=== PATIENT | male | born 1950 | race Caucasian/White ===

== ENCOUNTER 2017-06-12 14:46 | Observation (INO) | payer BC, OTHER ==
[2017-06-12] VITALS (10 sets, daily range): BP systolic 138–166; BP diastolic 87–98; PULSE 54–70; TEMP 36.7–37.2; O2SAT 93–95; Ht 177.8 cm; Wt 120.3 kg
[~2017-06-12] VITALS: Ht 177.8 cm; Wt 120.3 kg
[~2017-06-12 14:46] MED LIST: ATEN-175 PO; ENOX40IN SQ; GLUCOSAMINE PO; HCTZ PO; LEVO125T7 PO; LISI10TA PO; OXYC-292 PO; RANI150T3 PO; SILD100T PO
[2017-06-12] MEDS ORDERED: HEPARIN SOD (PORCINE) 1000 UNIT/ML 10 ML VIAL ONE ×2 (14:52→16:05)
[2017-06-12] MEDS ORDERED: NiCARDipine HCL INJ 2.5 MG/ML 10 ML AMP ONE (14:52)
[2017-06-12] MEDS ORDERED: FENTANYL CITRATE INJ 50 MCG/1 ML 2 ML VIAL ONE (14:52)
[2017-06-12] MEDS ORDERED: MIDAZOLAM HCL 1 MG/ML 2ML VIAL ONE (14:52)
[2017-06-12 15:00] LABS: BASO % 0.2 %; BASO ABS # 0.01 K/uL (0-0.2); COMPLETE YES; EOS % 0.7 %; HEMATOCRIT 41.4 % (42-52); IG% 1.1 %; LYMPH % 21.6 %; LYMPH ABS # 0.99 K/uL (1.2-3.4); MEAN CELL VOLUME 92.6 fL (80-100); MEAN CORPUSCULAR HEMOGLOBIN 30.4 pg (25-34); MEAN CORPUSCULAR HGB CONC 32.9 g/dl (32-36); MEAN PLATELET VOLUME 9.4 fL (7.4-10.4); MONO % 7.9 %; NEUT % 68.5 %; PLATELET COUNT 165 K/uL (130-400); RED BLOOD COUNT 4.47 M/uL (4.7-6.1); WHITE BLOOD COUNT 4.58 K/uL (4.8-10.8)
[2017-06-12] MEDS ORDERED: HYDR25TA4 PO (15:12)
[2017-06-12] MEDS ORDERED: ATOR-22 PO (15:12)
[2017-06-12] MEDS ORDERED: LEVO125T72 PO (15:12)
[2017-06-12] MEDS ORDERED: ANS100 PO (15:12)
[2017-06-12] MEDS ORDERED: ASPI81TA28 PO (15:12)
[2017-06-12] MEDS ORDERED: FLUT50SP45 NAE (15:12)
--- NOTE | 2017-06-12 15:18 | DIAGNOSTIC IMAGING REPORT ---
CHEST ONE VIEW PORTABLE CLINICAL HISTORY: Chest pain. COMPARISON STUDY: Chest radiograph January 19, 2013. FINDINGS: Lung volumes are normal. No pneumothorax or pleural effusion is present. There is no consolidation or evidence of pulmonary edema. Cardiomediastinal silhouette is normal. IMPRESSION: No acute cardiopulmonary findings. Electronically signed by: Logan Pepper M.D. 06/12/2017 3:17 PM Dictated Date/Time: 06/12/2017 3:16 PM
[2017-06-12 15:19] LABS: ISTAT CREATININE 1.2 mg/dl (0.6-1.3); ISTAT HEMOGLOBIN 12.9 g/dl (14.0-18.0); ISTAT IONIZED CALCIUM 1.17 mmol/l (1.12-1.32)
[2017-06-12 15:19] LABS: ALT/SGPT 43 U/L (12-78); BLOOD UREA NITROGEN 29 mg/dl (7-18); BUN/CREATININE RATIO 21.9 (10-20); CALCIUM 8.7 mg/dl (8.5-10.1); CARBON DIOXIDE 26 mmol/L (21-32); CHLORIDE 105 mmol/L (98-107); CREATININE 1.34 mg/dl (0.60-1.40); GLUCOSE 85 mg/dl (70-99); POTASSIUM 4.1 mmol/L (3.5-5.1); SODIUM 137 mmol/L (136-145)
--- NOTE | 2017-06-12 15:28 | Procedure Note ---
Pre-Mod Sedation Assessment General Date of Moderate Sedation: Jun 12, 2017. Vital Signs: Vital Signs Past 12 Hours Date Time Temp Pulse Resp B/P (MAP) Pulse Ox O2 Delivery O2 Flow Rate FiO2 06/12/17 15:09 66 18 146/93 95 Room Air 06/12/17 14:59 68 06/12/17 14:54 96 Room Air 06/12/17 14:46 96 Room Air 06/12/17 14:46 37.0 68 16 147/90 96 Room Air Review Cardiovascular: regular rate, rhythm, no edema, no gallop, no JVD, no murmur Abdomen: soft, no organomegaly Lungs: lungs clear Airway Class: III Pre-Sedation Airway Assessment Oral Cavity: WNL Able to Visualize Vocal Cords: No Hx of Sleep Apnea: Yes Smoking Status: Never Smoker Mallampati Classification: Class III Procedure Planning Contraindications-for Mod Sed: None Yes Notes The planned sedation has been discussed with the patient and consent obtained. I have identified the patient, determined the appropriateness of sedation and have assessed the patient immediately prior to the procedure. All medicine(s) and interventions are by my order.
--- NOTE | 2017-06-12 15:34 | EMERGENCY ROOM VISIT NOTE ---
History Report prepared by Javier: Brian Antonio Under the Supervision of: Dr. Joaquim Munoz M.D. First contact with patient: 14:47 Chief Complaint: CHEST PAIN Stated Complaint: FAILED STRESS TEST History of Present Illness The patient is a 66 year old male who presents to the Emergency Room with complaints of intermittent chest pain for the past couple of days. The patient notes that he had a stress test done today due to an abnormal EKG noticed recently at his PCP. He additionally notes that a couple of days ago he was having chest pain with exertion while carrying a bed. Earlier today he was given 4 aspirin and a Nitro SL, and this relieved his pain. The patient has a family history of heart disease, and he states that his father of a heart attack at 64. Source of History: patient Onset: a couple days Position: chest Timing: intermittent Modifying Factors (Worsening): exertion Modifying Factors (Relieving): other (Nitro and aspirin) Review of Systems See HPI for pertinent positives & negatives. A total of 10 systems reviewed and were otherwise negative. Past Medical & Surgical Medical Problems: (1) DJD (degenerative joint disease) Surgical Problems: (1) Hx of cholecystectomy Family History Heart disease Social History Smoking Status: Never Smoker Marital Status: Housing Status: lives with family Occupation Status: retired Current/Historical Medications Scheduled Aspirin (Aspirin Ec), 81 MG PO DAILY Atenolol (Tenormin), 100 MG PO QPM Atorvastatin (Lipitor), 20 MG PO DAILY Flurbiprofen (Flurbiprofen), 100 MG PO BID Fluticasone Propionate (Nasal) (Allergy Nasal Prue 24 Ho), 2 SPRAYS KADY DAILY Hydrochlorothiazide (Hctz), 25 MG PO DAILY Levothyroxine Sodium (Synthroid), 125 MCG PO DAILY Lisinopril (Prinivil), 10 MG PO QPM Ranitidine Hcl (Zantac), 150 MG PO QPM Allergies Coded Allergies: Doxycycline (Verified Allergy, Unknown, RASH, 06/12/17) Penicillins (Verified Allergy, Unknown, RASH, 06/12/17) Tetracycline (Verified Allergy, Unknown, RASH, 06/12/17) Physical Exam Vital Signs Date Time Temp Pulse Resp B/P (MAP) Pulse Ox O2 Delivery O2 Flow Rate FiO2 06/12/17 15:09 66 18 146/93 95 Room Air 06/12/17 14:59 68 12/13/17 14:54 96 Room Air 06/12/17 14:46 96 Room Air 06/12/17 14:46 37.0 68 16 147/90 96 Room Air Physical Exam GENERAL: Patient is a healthy-appearing well-nourished male HEAD: Normocephalic atraumatic EYES: Ocular movements intact pupils equal and react to light OROPHARYNX mucous membranes are moist no exudates present no erythema or edema present NECK: Supple no nuchal rigidity CHEST: Good equal expansion LUNGS: Clear and equal to auscultation CARDIAC: Normal S1 and S2 ABDOMEN: Soft nontender no guarding BACK: No CVA tenderness EXTREMITIES: No pain upon palpation normal muscle strength in all groups no clubbing cyanosis or edema NEURO: Patient is following commands and answering questions appropriately. Alert and oriented x3 Cranial Nerves 2-12 grossly intact Medical Decision & Procedures ER Provider Diagnostic Interpretation: Radiology results as stated below per my review and radiologist interpretation: CHEST ONE VIEW PORTABLE CLINICAL HISTORY: Chest pain. COMPARISON STUDY: Chest radiograph January 19, 2013. FINDINGS: Lung volumes are normal. No pneumothorax or pleural effusion is present. There is no consolidation or evidence of pulmonary edema. Cardiomediastinal silhouette is normal. IMPRESSION: No acute cardiopulmonary findings. Electronically signed by: Logan Pepper M.D. 06/12/2017 3:17 PM Dictated Date/Time: 06/12/2017 3:16 PM Laboratory Results 06/12/17 14:50 Red Blood Count 4.47, Mean Corpuscular Volume 92.6, Mean Corpuscular Hemoglobin 30.4, Mean Corpuscular Hemoglobin Concent 32.9, Mean Platelet Volume 9.4, Neutrophils (%) (Auto) 68.5, Lymphocytes (%) (Auto) 21.6, Monocytes (%) (Auto) 7.9, Eosinophils (%) (Auto) 0.7, Basophils (%) (Auto) 0.2, Neutrophils # (Auto) 3.14, Lymphocytes # (Auto) 0.99, Monocytes # (Auto) 0.36, Eosinophils # (Auto) 0.03, Basophils # (Auto) 0.01 06/12/17 14:50 Test 06/12/17 14:49 06/12/17 14:50 06/12/17 15:00 06/12/17 15:07 Creatine Kinase MB Ratio (0-3.0) White Blood Count 4.58 K/uL (4.8-10.8) Red Blood Count 4.47 M/uL (4.7-6.1) Hemoglobin 13.6 g/dL (14.0-18.0) Hematocrit 41.4 % (42-52) Mean Corpuscular Volume 92.6 fL (80-100) Mean Corpuscular Hemoglobin 30.4 pg (25-34) Mean Corpuscular Hemoglobin Concent 32.9 g/dl (32-36) Platelet Count 165 K/uL (130-400) Mean Platelet Volume 9.4 fL (7.4-10.4) Neutrophils (%) (Auto) 68.5 % Lymphocytes (%) (Auto) 21.6 % Monocytes (%) (Auto) 7.9 % Eosinophils (%) (Auto) 0.7 % Basophils (%) (Auto) 0.2 % Neutrophils # (Auto) 3.14 K/uL (1.4-6.5) Lymphocytes # (Auto) 0.99 K/uL (1.2-3.4) Monocytes # (Auto) 0.36 K/uL (0.11-0.59) Eosinophils # (Auto) 0.03 K/uL (0-0.5) Basophils # (Auto) 0.01 K/uL (0-0.2) RDW Standard Deviation 50.4 fL (36.4-46.3) RDW Coefficient of Variation 15.0 % (11.5-14.5) Immature Granulocyte % (Auto) 1.1 % Immature Granulocyte # (Auto) 0.05 K/uL (0.00-0.02) Estimated GFR () 63.5 Estimated GFR (Non- 54.8 BUN/Creatinine Ratio 21.9 (10-20) Calcium Level 8.7 mg/dl (8.5-10.1) Direct Bilirubin 0.2 mg/dl (0-0.2) Alanine Aminotransferase (ALT/SGPT) 43 U/L (12-78) Albumin 3.8 gm/dl (3.4-5.0) Lipase 302 U/L (73-393) Bedside Troponin I 0.060 ng/ml (0-0.045) Bedside Hemoglobin 12.9 g/dl (14.0-18.0) Bedside Hematocrit 38 % (42-52) Bedside Sodium 140 mEq/L (135-144) Bedside Potassium 3.9 mEq/L (3.3-5.0) Bedside Chloride 104 mEq/L (101-112) Bedside Total CO2 23 mEq/l (24-31) Anion Gap 18.0 mmol/L (16-25) Bedside Blood Urea Nitrogen 30 mg/dl (7-18) Bedside Creatinine 1.2 mg/dl (0.6-1.3) Bedside Glucose (other) 91 mg/dl (70-99) Bedside Ionized Calcium (Leon) 1.17 mmol/l (1.12-1.32) Labs reviewed by ED physician. ECG Indication: chest pain Rate (beats per minute): 67 Rhythm: normal sinus Findings: no acute ischemic change, no ectopy, other (Old inferior infarct) ED Course 1447: Past medical records reviewed. The patient was evaluated in room A10. A complete history and physical examination was performed. 1501: I discussed the patient's case with Dr. Gunn, Cardiology, and he is gong to take the patient to the Pack Mule Worker Medical Decision Differential diagnosis: Etiologies such as cardiac ischemia, aortic dissection, pulmonary embolism, pneumonia, pneumothorax, musculoskeletal, infections, pericarditis, myocarditis , esophageal rupture, gastrointestinal, as well as others were entertained. This is a 66-year-old male who presents emergency department complaining of a failed stress test. The patient in the emergency department is pain-free. I did discuss the case with Dr. Gunn who agreed to take the patient to the Pack Mule Worker. Patient was in agreement with the treatment plan. Medication Reconcilliation Current Medication List: was personally reviewed by me Blood Pressure Screening Patient's blood pressure: Elevated blood pressure Monitored by the profiler Consults Time Called: 1458 Consulting Physician: Dr. Gunn, Cardiology Returned Call: 1501 I discussed the patient's case with Dr. Gunn, Cardiology, and he is gong to take the patient to the Pack Mule Worker Impression Primary Impression: Precordial chest pain Scribe Attestation The scribe's documentation has been prepared under my direction and personally reviewed by me in its entirety. I confirm that the note above accurately reflects all work, treatment, procedures, and medical decision making performed by me. Departure Information Dispostion Other (Pack Mule Worker) Referrals No Doctor, Assigned (PCP) Patient Instructions My [facility]
[2017-06-12 15:37] LABS: ALKALINE PHOSPHATASE 59 U/L (45-117); AST/SGOT 22 U/L (15-37)
--- NOTE | 2017-06-12 16:20 | [facility] Post Operative Brief Note ---
Preliminary Procedure Note Procedure Date Jun 12, 2017. Pre-Procedure Diagnosis Angina, Positive Stress Test AUC Score 9 Post-Procedure Diagnosis Severe CAD Procedure(s) Performed Coronary Angiography Auto Research Engineer Dr. Gerard Gunn Chiseler Head(s) Clinton Duran Estimated Blood Loss <15cc Medication(s) Fentanyl (12.5 mcg IV), Heparin (5000u IV), Versed (1mg IV), Lidocaine 1% ( local infiltration) Preliminary Findings Right dominant coronary anatomy LM Relatively short, normal caliber LAD Type II, mild proximal calcification. Long mid vessel 80+ % LCX Large , small M1, large trifurcating OM, LCX 20% origin moderate irreg RCA Dominant moderate irregularities LV pressure 121/3/16 Recommendations PCI without planned CABG Specimens None Fluids (cc crystalloids) 60 Anesthesia Start 1530 End (initial procedure 1558) Procedural Complication(s) None Disposition Monitor And Storage Bin Tender Holding/Recovery
--- NOTE | 2017-06-12 17:06 | Procedure Note ---
Post-Mod Sedation Assessment General Date of Moderate Sedation Jun 12, 2017. Vital Signs: Vital Signs Past 12 Hours Date Time Temp Pulse Resp B/P (MAP) Pulse Ox O2 Delivery O2 Flow Rate FiO2 06/12/17 17:00 Room Air 06/12/17 16:56 69 16 131/88 (102) 95 Room Air 06/12/17 15:09 66 18 146/93 95 Room Air 06/12/17 14:59 68 06/12/17 14:54 96 Room Air 06/12/17 14:46 96 Room Air 06/12/17 14:46 37.0 68 16 147/90 96 Room Air Review - Discharge Criteria Vital Signs Stable: Yes Alert/Oriented/Conversant: Yes Returned to Baseline Mental St: Yes Nausea Absent/Minimal: Yes Pain/Discomfort/Absent/Minimal: Yes Normal/Baseline Respirations: Yes Active Bleeding?: No Pt Received D/C Instructions: N/A Prescriptions Given: None Specific Proced. D/C Criteria Distal Pulses Present (Cardiac: Yes Groin site assessed-Card Cath: N/A Voided Prior To Discharge: N/A Discharged Patients Adult Escort/Transportation: Yes
[2017-06-12] MEDS ORDERED: CLOPIDOGREL BISULFATE 300 MG TAB PO ONE (17:07)
[2017-06-12] MEDS ORDERED: ACETAMINOPHEN 325 MG TAB PO PRN (17:15)
[2017-06-12] MEDS ORDERED: SODIUM CHLORIDE 0.9% 1000ML 1,000 ML IV SCH (17:15)
[2017-06-12] MEDS ORDERED: NITROGLYCERIN 0.4 MG SL PER TAB CHARGE SL PRN (17:15)
--- NOTE | 2017-06-12 17:15 | Cardiac Catheterization ---
Procedure Note Procedure Date Jun 12, 2017. Pre-Procedure Diagnosis Positive Stress Test AUC Score 8 Post-Procedure Diagnosis Severe CAD, Successful PCI Procedure(s) Performed Drug Eluting Stent, IVUS Statistical Methods Teacher Brad Automatic Outsole Cutter(s) Roger Estimated Blood Loss 20 Medication(s) Clopidogrel, Fentanyl, Heparin, Nicardipine, Nitroglycerin, Versed Summary of Findings Indication: Positive high-risk stress test Access: 6Fr right radial artery Catheters: EBU 3.5 guide Findings: For full details of patient's coronary angiography please see cath report dictated by Dr. Gunn. Briefly, patient found to have a diffuse up to 90% mid LAD stenosis consistent with his positive stress test. Pre-procedure MARCK 2 flow. Decision made to proceed with PCI. -- PCI -- Antithrombotic therapy: Heparin, Clopidogrel Procedure: LM cannulated with EBU 3.5 guide Prowater wire passed across lesion into distal vessel With wire across lesions there was loss of flow Mid LAD lesion predilated with 2.5 compliant balloon IVUS confirmed minimally calcified plaque with thrombus extending near distal segment Dilated lesion stented with 2.75 x 33 Xience ALANA Post stent placement IVUS showed well apposed stent struts ending in disease free segments. Stent underexpanded proximally Stent post-dilated with 3.5 noncompliant balloon IC vasodilators administered for spasm Post procedure MARCK 3 flow, stent well expanded with minimal residual stenosis and no apparent cardiac complications. Arterial Closure: TR Band Summary: 1. Severe single vessel coronary artery disease - 90% diffuse mid LAD stenosis 2. Successful PCI of mid LAD with 2.75 x 33 Xience ALANA (post-dilated with 3.5 NC ) Recommendations: To PCU for continued monitoring Loaded with Clopidogrel 600mg in central lab technician Continue dual-antiplatelet therapy for at least 6 months Continue statin, ASCVD risk factor modification per Dr. Gunn Consult cardiac Rehab Hemodynamics Rest Ao: 111/68/88 Final Ao: 112/63/83 LV: 123/13 Recommendations PCI without planned CABG Specimens None Radiation Exposure (mGy) 3861 Contrast (mls) 236 Visi Fluids (cc crystalloids) 156 Drains None Anesthesia Moderate Procedural Complication(s) None Disposition PCU ACC Data Cardiac Status Clinical evaluation leading to the procedure CAD Presntation: Positive Stress Test Anginal Classification: CCS III Heart Failure: No, NYHA Class: CCS I Cardiogenic Shock w/in 24Hrs: No Cardiac Arrest w/in 24Hrs: No Imaging studies past 6 months: Yes Stress studies past 6 months: Yes Stress Echocardiogram: Yes - Positive, Risk/Extent of Ischemia (High) Diagnostic Physician's Name: Gerard Gunn M.D. Status: Urgent Closure Device Percutaneous Entry Location: Radial Closure Device: Radial Band Recommendations: PCI without planned CABG PCI Indication: + Stress Test Lesion Segment Name: Mid LAD Culprit Artery: Yes Stenosis Prior to Rx (%): 90 Chronic Total Occlusion: No IVUS: Yes FFR: No Pre-Procedure MARCK Flow: 2 Previously Treated Lesion: No Lesion Complexity: Non-High/Non-C Lesion Length (mm): 25 Thrombus Present: Yes Bifurcation Lesion: No Guidewire Across Lesion: Yes Guidewire: Stenosis Post-Procedure (%): 0 Post-Procedure MARCK Flow: 3 Device(s) Deployed: Yes Intraprocedure Events Significant Dissection: No Perforation: No
--- NOTE | 2017-06-12 17:40 | HISTORY & PHYSICAL EXAMINATION ---
DATE OF ADMISSION: 06/12/2017 ADMISSION HISTORY AND PHYSICAL REFERRING PHYSICIAN: Dr. Kenny Bhatt. PRIMARY GENERAL MILLING SUPERINTENDENT: Dr. Hung Otero. PRIMARY PHYSICIAN: Dr. Jena Allen. ADMITTING DIAGNOSIS: Crescendo angina, markedly positive stress testing. HISTORY OF PRESENT ILLNESS: The patient is a 66-year-old male whose family history is notable for hypertension, dyslipidemia, and family history of father with myocardial infarction at age 60. The patient has recently been evaluated for signs and symptoms of exertional chest pressure pain. EKG and evaluation demonstrated possible inferior Q-wave, he subsequently was referred due to persistent symptoms described as a burning heavy pressure of midchest with activity and exertion with symptoms becoming more pronounced recently at moderate level workloads. Symptoms have some atypical features and patient was referred for stress echocardiography today. The patient at that time exercised for a total of 4 minutes on a Syd protocol before patient demonstrating classic exertional pain and discomfort with notable ST elevations in the anterior leads with new wall motion abnormalities in the LAD distribution. Symptoms resolved with rest and 1 single dose of sublingual nitroglycerin. Echocardiogram otherwise demonstrated preserved LV function, small patent foramen ovale, no significant valvular disease, there is mild enlargement of the proximal ascending aorta. The patient was referred to [facility]. At time of referral, ST-segment changes have returned to baseline. The patient was pain free without recurrent symptoms. He notes no rest symptoms, noted no recent sustained episodes. Notes no history of TIA or stroke, notes no history of renal or hepatic disease; notes no fevers, chills, sweats, cough, hoarseness, wheeze or hemoptysis, melena, hematochezia, dysuria, or hematuria. Appetite and weight have been stable. Underlying medical problems include obstructive sleep apnea with patient uses CPAP at night, hyperlipidemia on therapy; hypertension, controlled. ALLERGIES: DOXYCYCLINE, PENICILLIN AND TETRACYCLINE. MEDICATIONS PRIOR TO HOSPITALIZATION: Atorvastatin 20 mg p.o. daily, flurbiprofen 100 mg b.i.d. p.r.n., atenolol 100 mg p.o. daily, lisinopril 10 mg p.o. daily, levothyroxine 125 mcg p.o. daily, hydrochlorothiazide 1 tablet daily 25 mg, aspirin 81 mg per day, and omeprazole 20 mg p.o. daily. PAST SURGICAL HISTORY: Notable for right total knee replacement in 2012, right carpal tunnel surgery in September 2016, laparoscopic cholecystectomy in 2004, radioiodine thyroid therapy in September 1998, and past left eye nucleation in 1981. FAMILY HISTORY: As per previous description. Father had at age 65 of heart disease. 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 He is a nonsmoker. Very rare alcohol user. PHYSICAL EXAMINATION: GENERAL: The patient is a moderately obese, age-appropriate male, in no acute distress. VITAL SIGNS: Reveal a heart rate of 68, blood pressure of 134/74. HEENT: Normocephalic, atraumatic. NECK: Thin. There is no jugular venous distention. There is no carotid bruits. Carotid pulses are 2/4 without delay. LUNGS: Clear to auscultation. CARDIOVASCULAR: Regular with normal S1, S2. There is no murmur, gallop or rub. PMI is nondisplaced. ABDOMEN: Soft, nontender. There is no hepatosplenomegaly. There is no hepatojugular reflux. EXTREMITIES: Without cyanosis or clubbing. There is no peripheral edema. Femoral distal pulses are 2+/4. There is no brachial or femoral delay. There are no audible abdominal or femoral bruits. NEUROLOGIC: The patient is alert and answering questions appropriately. DIAGNOSTIC DATA: Chest x-ray on ER presentation demonstrates no acute findings. EKG reveals sinus rhythm, rate of 67, isolated Q-wave in lead aVF, unchanged from 2013. LABORATORY STUDIES: Sodium is 140, potassium 3.9, chloride 104, bicarbonate 23, BUN 29, creatinine 1.3. Point of care troponin was 0.06. Lipase is 302. White cell count is 4.5, hemoglobin is 13.6, platelet counts 165,000. IMPRESSION: A 66-year-old male with cardiac risk factors of hypertension, hyperlipidemia and familial history of coronary artery disease presents with signs and symptoms suggestive of crescendo angina with markedly positive stress echocardiography in the left anterior descending artery distribution with associated ST-elevation transiently. The patient is currently pain free and without discomfort with ongoing echocardiogram changes. He is postprandial since a.m. this morning. Discussed findings in detail with the patient, recommended proceeding to diagnostic cardiac catheterization this afternoon, the patient is agreeable. Procedure and risks were explained in detail with the patient including risks of , myocardial infarction, stroke, bleeding, infection, dye reaction, renal vascular and embolic injury; additional risks of coronary intervention were also explained including increased risk of myocardial infarction and need for urgent coronary artery bypass surgery. The patient is agreeable, consent signed. The patient will undergo diagnostic cardiac catheterization with further recommendations pending the results of the study.
[2017-06-12] MEDS ORDERED: IV FLUIDS COMPLETED PRN (19:00)
--- NOTE | 2017-06-12 20:19 | History and Physical ---
History & Physical Date & Time of Service: Jun 12, 2017 at 20:03 Chief Complaint: Cad, Precordial Chest Pain Primary Care Physician: No Doctor, Assigned History of Present Illness Source: patient, clinic records, hospital records This is a 66 year old male with a PMH of HTN, HLD, hypothyroidism - was seen as an outpatient by cardiology due to an abnormal EKG done by primary care. He was initially seen by cardiology and due to his risk factors (HTN, HLD) and family history (father of cardiac issues at age 60) - he was scheduled for a stress test. He had a stress as an outpatient which was positive (ST elevation and chest pain noted on exertion). 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 Noted to have disease in the LAD. One drug eluting stent was placed. Afterwards, he was sent to the PCU for observation. On exam, patient is doing well, no problems/issues - states that the chest pain is gone, no shortness of breath. Denies any other symptoms at this time. Family History Heart disease Social History Smoking Status: Never Smoker Marital Status: Occupational Status: retired Immunizations History of Influenza Vaccine: No History of Tetanus Vaccine?: Yes History of Pneumococcal: No History of Hepatitis B Vaccine: No Allergies Coded Allergies: Doxycycline (Verified Allergy, Unknown, RASH, 06/12/17) Penicillins (Verified Allergy, Unknown, RASH, 06/12/17) Tetracycline (Verified Allergy, Unknown, RASH, 06/12/17) Home Medications Scheduled Aspirin (Aspirin Ec), 81 MG PO DAILY Atenolol (Tenormin), 100 MG PO QPM Atorvastatin (Lipitor), 20 MG PO DAILY Flurbiprofen (Flurbiprofen), 100 MG PO BID Fluticasone Propionate (Nasal) (Allergy Nasal [address]), 2 SPRAYS KADY DAILY Hydrochlorothiazide (Hctz), 25 MG PO DAILY Levothyroxine Sodium (Synthroid), 125 MCG PO DAILY Lisinopril (Prinivil), 10 MG PO QPM Ranitidine Hcl (Zantac), 150 MG PO QPM Review of Systems Constitutional: No fever, No chills, No sweats, No weight loss, No weakness, No fatigue Eyes: No worsening of vision ENT: No hearing loss Respiratory: + dyspnea on exertion, No cough, No sputum, No wheezing, No shortness of breath, No dyspnea at rest, No hemoptysis Cardiovascular: + chest pain (resolved), No orthopnea, No edema, No palpitations Abdomen: No pain, No nausea, No vomiting, No diarrhea, No constipation, No GI bleeding Musculoskeletal: No joint pain, No muscle pain Genitourinary - Male: No hematuria, No dysuria, No urinary frequency, No urinary urgency Neurologic: No weakness, No balance problems Psychiatric: No depression symptoms, No anxiety, No insomnia Endocrine: No fatigue Hematologic / Lymphatic: No abnormal bleeding/bruising Integumentary: No rash Allergic / Immunologic: No environmental allergies, No seasonal allergies Physical Exam Vital Signs Date Time Temp Pulse Resp B/P (MAP) Pulse Ox O2 Delivery O2 Flow Rate FiO2 06/12/17 19:27 37.2 70 16 157/96 (116) 95 06/12/17 18:52 36.7 18 155/89 (111) 94 06/12/17 18:00 150/89 (109) 06/12/17 17:48 153/92 (112) 06/12/17 17:33 36.9 57 18 145/87 93 Room Air 06/12/17 17:19 36.7 54 18 151/87 (108) 06/12/17 17:10 65 16 130/76 (94) 95 Room Air 06/12/17 17:05 Room Air 06/12/17 17:00 Room Air 06/12/17 16:56 69 16 131/88 (102) 95 Room Air 06/12/17 15:09 66 18 146/93 95 Room Air 06/12/17 14:59 68 06/12/17 14:54 96 Room Air 06/12/17 14:46 96 Room Air 06/12/17 14:46 37.0 68 16 147/90 96 Room Air General Appearance: no apparent distress, + obese Head: normocephalic, atraumatic Eyes: normal inspection ENT: hearing grossly normal Neck: supple Respiratory/Chest: chest non-tender, lungs clear, normal breath sounds, no respiratory distress, no accessory muscle use Cardiovascular: regular rate, rhythm, no edema, no gallop, no JVD, no murmur, normal peripheral pulses Abdomen/GI: normal bowel sounds, non tender, soft Extremities/Musculoskelatal: normal inspection, no calf tenderness, normal capillary refill, no pedal edema, normal range of motion, + pertinent finding ( R wrist band) Neurologic/Psych: no motor/sensory deficits, alert, normal mood/affect Skin: normal color Lymphatic: no adenopathy Diagnostics Laboratory Results Results Past 24 Hours Test 06/12/17 14:50 06/12/17 15:00 06/12/17 15:07 06/12/17 16:24 Range/Units White Blood Count 4.58 4.8-10.8 K/uL Red Blood Count 4.47 4.7-6.1 M/uL Hemoglobin 13.6 14.0-18.0 g/dL Hematocrit 41.4 42-52 % Mean Corpuscular Volume 92.6 80-100 fL Mean Corpuscular Hemoglobin 30.4 25-34 pg Mean Corpuscular Hemoglobin Concent 32.9 32-36 g/dl Platelet Count 165 130-400 K/uL Mean Platelet Volume 9.4 7.4-10.4 fL Neutrophils (%) (Auto) 68.5 % Lymphocytes (%) (Auto) 21.6 % Monocytes (%) (Auto) 7.9 % Eosinophils (%) (Auto) 0.7 % Basophils (%) (Auto) 0.2 % Neutrophils # (Auto) 3.14 1.4-6.5 K/uL Lymphocytes # (Auto) 0.99 1.2-3.4 K/uL Monocytes # (Auto) 0.36 0.11-0.59 K/uL Eosinophils # (Auto) 0.03 0-0.5 K/uL Basophils # (Auto) 0.01 0-0.2 K/uL RDW Standard Deviation 50.4 36.4-46.3 fL RDW Coefficient of Variation 15.0 11.5-14.5 % Immature Granulocyte % (Auto) 1.1 % Immature Granulocyte # (Auto) 0.05 0.00-0.02 K/uL Sodium Level 137 136-145 mmol/L Potassium Level 4.1 3.5-5.1 mmol/L Chloride Level 105 98-107 mmol/L Carbon Dioxide Level 26 21-32 mmol/L Anion Gap 6.0 18.0 16-25 mmol/L Blood Urea Nitrogen 29 7-18 mg/dl Creatinine 1.34 0.60-1.40 mg/dl Estimated GFR () 63.5 Estimated GFR (Non- 54.8 BUN/Creatinine Ratio 21.9 10-20 Random Glucose 85 70-99 mg/dl Calcium Level 8.7 8.5-10.1 mg/dl Total Bilirubin 0.8 0.2-1 mg/dl Direct Bilirubin 0.2 0-0.2 mg/dl Aspartate Amino Transf (AST/SGOT) 22 15-37 U/L Alanine Aminotransferase (ALT/SGPT) 43 12-78 U/L Alkaline Phosphatase 59 45-117 U/L Total Creatine Kinase 145 39-308 U/L Creatine Kinase MB 2.9 0.5-3.6 ng/ml Creatine Kinase MB Ratio 2.0 0-3.0 Troponin I 0.076 0-0.045 ng/ml Total Protein 7.2 6.4-8.2 gm/dl Albumin 3.8 3.4-5.0 gm/dl Lipase 302 73-393 U/L Hepatitis C Antibody Screen NEG NEG Bedside Troponin I 0.060 0-0.045 ng/ml Bedside Hemoglobin 12.9 14.0-18.0 g/dl Bedside Hematocrit 38 42-52 % Bedside Sodium 140 135-144 mEq/L Bedside Potassium 3.9 3.3-5.0 mEq/L Bedside Chloride 104 101-112 mEq/L Bedside Total CO2 23 24-31 mEq/l Bedside Blood Urea Nitrogen 30 7-18 mg/dl Bedside Creatinine 1.2 0.6-1.3 mg/dl Bedside Glucose (other) 91 70-99 mg/dl Bedside Ionized Calcium (Leon) 1.17 1.12-1.32 mmol/l Kaolin Activated Coagulation Time 208 94-140 SECONDS Test 06/12/17 16:47 Range/Units Kaolin Activated Coagulation Time 235 94-140 SECONDS Diagnostic Radiology CHEST ONE VIEW PORTABLE CLINICAL HISTORY: Chest pain. COMPARISON STUDY: Chest radiograph January 19, 2013. FINDINGS: Lung volumes are normal. No pneumothorax or pleural effusion is present. There is no consolidation or evidence of pulmonary edema. Cardiomediastinal silhouette is normal. IMPRESSION: No acute cardiopulmonary findings. EKG Normal sinus rhythm Normal ECG Impression Assessment and Plan This is a 66 year old male with a PMH of HTN, HLD, hypothyroidism here secondary to an abnormal stress test, found to have CAD and ALANA x1 to the LAD CAD severe LAD stenosis one ALANA placed will monitor in tele aspirin, Plavix atenolol (was taking at home) continued continue SELAM-I Lipitor increased to high-intensity dosing cardiac rehab consulted further management as per cardiology HTN blood pressure elevated currently He is to receive Atenolol, Lisinopril this evening will monitor BP and adjust accordingly continue HCTZ as well Hypothyroidism continue Synthroid Acute Kidney Injury creatinine at 1.3 usually creat runs closer to 1.0-1.1 as outpatient IVFs tonight monitor kidney function in AM DVT ppx received heparin this evening during cath, ambulation FULL CODE Advanced Directives Existing Living Will: No Existing Power of Lodging Facilities Manager: No VTE Prophylaxis VTE Risk Assessment Done? Y/N: Yes Risk Level: Moderate
[2017-06-12] MEDS ORDERED: RANITIDINE HCL 150 MG TAB PO SCH (21:00)
[2017-06-12] MEDS ORDERED: LISINOPRIL 10 MG TAB PO SCH (21:00)
[2017-06-13 00:05] VITALS: BP 168/103; PULSE 52; O2SAT 93
--- NOTE | 2017-06-13 00:57 | CARDIAC CATH REPORT ---
INDICATIONS: Crescendo angina, abnormal stress testing. PROCEDURE: Coronary angiography, left heart catheterization. REFERRING: Dr. Kenny hBatt, Dr. Hung Otero, Dr. Jena Allen. BRIEF CARDIAC HISTORY: The patient is a 66-year-old male who presents with several weeks to months' history of exertional chest pressure and burning sensation with an accelerating pattern now at class 3+ pitting classic angina pectoris with atypical features. Stress echocardiography for evaluation of symptoms today was notable for ST elevation, reproduction of symptoms and new wall motion abnormality induced in the LAD distribution on echocardiogram at 4 minutes on a Syd protocol. He has not manifested signs or symptoms of congestive heart failure. The patient at the time of procedure was free of pain and discomfort. EKG done demonstrated normalization of ST-segment abnormalities induced during stress testing earlier the same day. ACCESS: Right radial artery. CATHETERS: A 6-[place] Ze[place]ander long [place] sheath, 5-[place] brachial 3.5, 5-[place] 3DRC, 5-[place] JR5. CONTRAST: Nonionic x106 mL Visipaque. SEDATION: Start time was 1530, end time was 1558. MONITOR: Esther Ever. SEDATION: 12.5 mcg IV fentanyl, 1 mg IV Versed. MEDICATIONS: Access site received local infiltration of 1% lidocaine. Following arterial sheath insertion, the patient received intraarterial injection of 250 mcg of nicardipine, and after central access gained, 5000 units of IV heparin was administered. RADIATION EXPOSURE: 7.7 minutes of fluoroscopy [place] 1681 milligrays[place] [address]. COMPLICATIONS: None. RESULTS: CORONARY ANGIOGRAPHY: Right dominant coronary anatomy is present: LEFT MAIN: Left main is moderately large but trifurcates to give rise to left anterior descending, a very trivial ramus intermedius and the left circumflex. Left main has minimal calcification but is free of stenosis. LEFT ANTERIOR DESCENDING: Left anterior descending is a long type 2 vessel. Gives rise to moderately large septal branch, a large diagonal branch, a second septal branch, all within its proximal third, and courses to terminate within the apex. Within the left anterior descending, there is mild to moderate calcification in its very proximal portion. The mid portion of the vessel has a long 80% stenosis, very thin mid portion of the narrowing in a string-like fashion. Distal vessel has moderate luminal irregularities. LEFT CIRCUMFLEX: Left circumflex is large but nondominant and gives rise to a small first marginal branch and a trifurcating obtuse marginal and a trivial AV groove portion. The ostium of the left circumflex is narrowed by 20%. Entire vasculature has mild luminal irregularities. RIGHT CORONARY ARTERY: The right coronary is dominant in distribution and moderately large in caliber. Gives rise to 2 right ventricular branches at the AV groove along posterior descending artery and a moderate size posterior ventricular branch. Posterior descending artery is small in caliber. Within the right coronary, there are moderate irregularities in its proximal mid portion, but no obstruction. LEFT VENTRICULAR ANGIOGRAPHY: LV angiography not performed. HEMODYNAMICS: Initial aortic root pressure was 111/68 with a mean of 88, LV pressure was 121/3 with an EDP of 13. Following coronary angiography, final aortic root pressure was 123/74 with a mean of 95. FINAL IMPRESSIONS: 1. Single-vessel severe disease with long 80% stenosis in the mid left anterior descending with lesion greater in its mid portion, narrowing down to greater than 90%. 2. Mild to moderate diffuse coronary atherosclerosis. 3. Normal left end-diastolic pressure. RECOMMENDATIONS: The patient will be referred for coronary intervention in the same setting.
[2017-06-13 04:27] VITALS: BP 141/83; PULSE 58; TEMP 36.7; O2SAT 94
[2017-06-13] MEDS ORDERED: LEVOTHYROXINE 125 MCG TAB PO SCH (06:00)
[2017-06-13 07:15] LABS: COMPLETE YES; HEMATOCRIT 39.5 % (42-52); LYMPH % 19.3 %; LYMPH ABS # 0.77 K/uL (1.2-3.4); MEAN CELL VOLUME 91.2 fL (80-100); MEAN CORPUSCULAR HGB CONC 32.9 g/dl (32-36); MEAN PLATELET VOLUME 9.3 fL (7.4-10.4); MONO % 9.5 %; NEUT % 70.2 %; PLATELET COUNT 157 K/uL (130-400); RED BLOOD COUNT 4.33 M/uL (4.7-6.1); WHITE BLOOD COUNT 3.99 K/uL (4.8-10.8)
[2017-06-13 07:32] VITALS: BP 161/87; PULSE 55; TEMP 36.7; O2SAT 95
[2017-06-13 07:50] LABS: CALCIUM 8.1 mg/dl (8.5-10.1); CREATININE 1.05 mg/dl (0.60-1.40)
[2017-06-13 08:20] VITALS: BP 168/94; PULSE 55
[2017-06-13] MEDS ORDERED: ATORVASTATIN 40 MG TAB PO SCH (09:00)
[2017-06-13] MEDS ORDERED: ASPIRIN 81 MG ECTAB PO SCH (09:00)
[2017-06-13] MEDS ORDERED: HYDROCHLOROTHIAZIDE 25 MG TAB PO SCH (09:00)
[2017-06-13] MEDS ORDERED: CLOPIDOGREL BISULFATE 75 MG TAB PO SCH (09:00)
[2017-06-13] MEDS ORDERED: LSN10 PO (11:52)
[2017-06-13] MEDS ORDERED: LPT40 PO (11:52)
[2017-06-13] MEDS ORDERED: NTRSLP4 SL (11:52)
[2017-06-13] MEDS ORDERED: PLV75 PO (11:52)
--- NOTE | 2017-06-13 11:54 | Discharge Instructions ---
Discharge Instructions Procedure Procedure Date: Jun 13, 2017. Reason for Visit: Cad, Precordial Chest Pain. Discharge Discharge Date: Jun 13, 2017. Discharge Diagnosis: Single vessel LAD disease s/p ALANA Problem List: Medical Problems: (1) Precordial chest pain Status: Acute Last Recorded Wt (Kilograms): 120.300 Anesthesia Post Anesthesia Instructions: If you have had General Anesthesia or IV Sedation: * Do not drive today. * Resume driving when surgeon permits. * Do not make important decisions or sign legal documents today. * Call surgeon for: 1. Temperature elevations greater than 101 degrees F. 2. Uncontrollable pain. 3. Excessive bleeding. 4. Persistent nausea and vomiting. 5. Medication intolerance (nausea, vomiting or rash). * For nausea and vomiting use only clear liquids such as: tea, soda, bouillon until nausea subsides, then gradually increase diet as tolerated. * If you have any concerns or questions, call your surgeon's office. If physician is unavailable and it is an emergency, call 911 or go to the nearest emergency room. Instructions Activity Recommendations: limitations as noted below Recommended Home Diet: low sodium, low cholesterol Allergies: Coded Allergies: Doxycycline (Verified Allergy, Unknown, RASH, 06/12/17) Penicillins (Verified Allergy, Unknown, RASH, 06/12/17) Tetracycline (Verified Allergy, Unknown, RASH, 06/12/17) Provider Instructions ACTIVITY RECOMMENDATIONS: It is common to feel weak and fatigue for a few days. * Do not drive or operate any motorized equipment for the next three days. * Limit stair usage (2 or 3 trips a day only) for the next three days. * Do not lift anything heavier than 10 pounds for the next three days. * Do not engage in vigorous exercise or any sports for the next five days. * You may shower the day after your procedure, but do not immerse the area for three days. Cleanse the site gently with soap and water. SPECIAL CARE INSTRUCTIONS: * You may replace the pressure dressing or band-aid the morning after the procedure. * After your procedure, it is normal to have a small bruise or small lump at the site. Examine your site daily for any change in the bruise or lump, redness, swelling, drainage or numbness. Notify your doctor if any change. BLEEDING: * If there is a small amount of bleeding at the site, lie down and apply firm pressure with a clean cloth for ten minutes. When the bleeding stops, lie quietly keeping the procedure limb straight for six hours. Notify your doctor as soon as possible. * If the bleeding does not stop after ten minutes or if there is a large amount of bleeding or spurting, call 911 immediately. Continue to lie down and hold firm pressure until help arrives. SKIN IRRITATION: * You may experience some redness and/or swelling in the area where radiation was administered. If any skin irritation occurs, please contact your family physician. FOLLOW UP VISIT: Keep any scheduled doctor appointments. Follow Up Follow-up with: [facility] 2-4 weeks Scheduling will call Cardiac rehab Melissa Webb Recommendations: Call your doctor if: * Temperature above 101 degrees * Pain not relieved by pain medicine ordered * There is increased drainage or redness from any incision * You have any unanswered questions or concerns. Your Doctors Instructions noted above were prepared by provider Gerard Gunn. Patient Signature Section: Patient Instructions Signature Page Kalen Huber Patient (or Guardian) Signature/Date: I have read and understand the instructions given to me by my caregivers. Caregiver/RN/Doctor Signature/Date: The above-named patient and/or guardian has received patient instructions on this date. + Original Patient Signature Page (only) stays with chart. Please make copy for patient.
[2017-06-13 12:03] VITALS: BP 168/94; PULSE 55; TEMP 36.7; O2SAT 95
[2017-06-13 12:16] VITALS: BP 153/109; PULSE 61; TEMP 36.6; O2SAT 95
--- NOTE | 2017-06-13 14:29 | DISCHARGE SUMMARY ---
DISCHARGE DIAGNOSES: 1. Crescendo angina. 2. Abnormal stress testing. 3. Single vessel obstructive coronary disease with high grade left anterior descending stenosis. 4. Hypertension. 5. Hyperlipidemia. OPERATIONS AND PROCEDURES: Left heart catheterization, coronary angiography by Dr. Gunn. A drug-eluting stent implantation left anterior descending with IVUS guidance by Dr. Marcelo Salinas. COMPLICATIONS: None. Discharged to home. Condition stable. MEDICATIONS ON DISCHARGE: Notable changes, increase in atorvastatin to 80 mg per day. Increase lisinopril to 20 mg p.o. daily. Add clopidogrel 75 mg per day, nitroglycerin 0.4 mg sublingual p.r.n. chest pain. Continue aspirin 81 mg per day. Continue atenolol 100 mg p.o. q.p.m., continue Flonase p.r.n. Continue hydrochlorothiazide 25 mg p.o. daily. Continue levothyroxine 125 mcg per day. Continue ranitidine 150 mg q.p.m. Discontinue flurbiprofen for time being. SPECIAL INSTRUCTIONS: Follow up with [facility] in 2-4 weeks' time. Cardiac rehab. No driving, lifting or strenuous activity x3 days. Call or go to the ER if sudden bleeding in her right wrist develops or signs or symptoms of chest pain or discomfort develop. BRIEF HISTORY: The patient is a 66-year-old male who was referred emergently to [facility] after presenting for evaluation of crescendo chest discomfort with exertion. Symptoms had some atypical features but resulted in referral for stress echocardiography with patient developing marked symptoms and ST elevation on EKG which transiently resolved with discontinuation of activity. Echocardiogram demonstrated newly induced wall motion abnormalities in the LAD distribution. He was referred to [facility] for further evaluation. HOSPITAL COURSE: The patient was seen and examined in the Emergency Room setting, pain free at the time. EKGs and stress testing reviewed. The patient was postprandial for stress testing. Options and recommendations were discussed including recommendations for cardiac catheterization same day. He was agreeable, underwent same day procedure urgently. Study performed via right radial access with findings demonstrating mild diffuse coronary atherosclerosis with mild calcification in the proximal vessels. There is a single vessel long 80% mid LAD stenosis, left ventricular end diastolic pressures were normal. The patient was subsequently referred and underwent drug-eluting stent with IVUS guiding with successful result. Post procedure the patient tolerated well. On morning the patient was ambulatory and observed until afternoon. Blood pressures were trending higher and medications were adjusted to those at time of discharge with plan to follow up closely. Ultimate goals of cardiac rehab and initiation of aggressive heart healthy and lifestyle changes. LABORATORY DATA: On day of discharge, hemoglobin was 13, hematocrit 39.5. Sodium 136, potassium 4.0, chloride 107, bicarbonate 22, BUN 20, creatinine 1.05. Peak troponin was 0.076.
[2017-06-13] MEDS ORDERED: LISINOPRIL 20 MG TAB PO SCH (21:00)
== END 2017-06-13 13:40 | disposition home or self-care (01) ==
LOC: EDBD 14:46 → C.EDA 14:47 → ENRESERV 15:45 → C.2E 17:20
PROVIDERS: ADMIT Physician Assistant Medical; ATTEND Internal Medicine Cardiovascular Disease
DX: I25.110 Atherosclerotic heart disease of native coronary artery with unstable angina pectoris (principal); R94.39 Abnormal result of other cardiovascular function study; N17.9 Acute kidney failure, unspecified; I10 Essential (primary) hypertension; E78.5 Hyperlipidemia, unspecified; E03.9 Hypothyroidism, unspecified; E66.9 Obesity, unspecified; G47.33 Obstructive sleep apnea (adult) (pediatric); Z79.82 Long term (current) use of aspirin; Z96.651 Presence of right artificial knee joint; Z90.49 Acquired absence of other specified parts of digestive tract; Z90.01 Acquired absence of eye; Z82.49 Family history of ischemic heart disease and other diseases of the circulatory system

== ENCOUNTER 2020-01-27 08:04 | Inpatient (IN) ==
--- NOTE | 2019-12-18 11:49 | PAT Medication Instructions ---
Medication Instructions Date of Service December 18, 2019 Home Medications aspirin [Aspir-81] 81 mg PO QAM atenolol 50 mg PO QAM atorvastatin 20 mg PO PM cholecalciferol (vitamin D3) [Vitamin D3] 50 mcg PO QAM diphenhydramine-acetaminophen [Tylenol PM Extra Strength] 1 tab PO HS PRN famotidine 20 mg PO PM hydrochlorothiazide 25 mg PO QAM levothyroxine 125 mcg PO QAM lisinopril 20 mg PO BID DO NOT take the morning of surgery cholecalciferol (vitamin D3) [Vitamin D3] 50 mcg PO QAM hydrochlorothiazide 25 mg PO QAM lisinopril 20 mg PO BID Take morning of surgery With a small sip of water, OTHERWISE NOTHING TO EAT OR DRINK AFTER MIDNIGHT: aspirin [Aspir-81] 81 mg PO QAM atenolol 50 mg PO QAM levothyroxine 125 mcg PO QAM Take evening before surgery atorvastatin 20 mg PO PM diphenhydramine-acetaminophen [Tylenol PM Extra Strength] 1 tab PO HS PRN (if needed) famotidine 20 mg PO PM lisinopril 20 mg PO BID Other Notes If you have any questions please call us at [phone] or [phone] or [phone] or [phone]
--- NOTE | 2019-12-21 13:40 | Anesthesiology Consultation ---
Date of Service December 21, 2019 Assessment & Plan (1) Encounter for pre-operative examination: COVID Status: As of 12/20 assessment, patient denies travel to endemic area, known exposure/sick contacts, or symptoms of COVID19. Patient made aware to social distance, wear a mask in public and avoid travel for 14 days prior to surgery. Preoperative COVID19 testing to be completed prior to surgery. Chart Review Chart Review: Acceptable Risk for Surgery (pending surgeon-ordered pcp and cardio clearances) and Patient seen in Pre Admission Testing Teaching & Discussion Instructed NPO after midnight before surgery, except medications with 15 cc of water. Medication instructions provided according to the PAT guidelines. History Surgery Operation Date: 01/27/20 08:20 Proposed Procedures p Left Total Knee Arthroplasty - Rip Huber DO Height/Weight Height: 5 ft 10 in Weight: 121.2 kg Allergies Allergy/AdvReac Type Severity Reaction Status Date / Time doxycycline Allergy Unknown RASH Verified 12/18/19 08:40 Penicillins Allergy Unknown RASH Verified 12/18/19 08:40 tetracycline Allergy Unknown RASH Verified 12/18/19 08:40 adhesive Allergy Blister Verified 12/18/19 08:41 Medications Home Medications Medication Instructions Recorded Confirmed Last Taken aspirin [Aspir-81] 81 mg PO QAM 12/18/19 12/18/19 Unknown atenolol 50 mg PO QAM 12/18/19 12/18/19 Unknown atorvastatin 20 mg PO PM 12/18/19 12/18/19 Unknown cholecalciferol (vitamin D3) 50 mcg PO QAM 12/18/19 12/18/19 Unknown [Vitamin D3] diphenhydramine-acetaminophen 1 tab PO HS PRN 12/18/19 12/18/19 Unknown [Tylenol PM Extra Strength] famotidine 20 mg PO PM 12/18/19 12/18/19 Unknown hydrochlorothiazide 25 mg PO QAM 12/18/19 12/18/19 Unknown levothyroxine 125 mcg PO QAM 12/18/19 12/18/19 Unknown lisinopril 20 mg PO BID 12/18/19 12/18/19 Unknown Past Medical History Medical History CAD (coronary artery disease) GERD (gastroesophageal reflux disease) Hyperlipidemia Hypertension Hypothyroidism Myocardial Infarction prior to cath in 2017 Osteoarthritis Sleep apnea cpap Exercise / Class Metabolic Activity II 4-5 Yardwork/Stairs/Walk up hill (denies CP or SOB with 1 FOS) Past Family History Family History (Updated 12/18/19 @ 08:53 by Brea Roland RN) Mother Diabetes Stomach cancer Past Surgical History Surgical History H/O blepharoplasty bilat History of cardiac cath x2 2017 [facility]> 1 stent Jul 2019 > no stents > [facility] History of carpal tunnel release bilat History of cholecystectomy History of colonoscopy History of heart artery stent History of total knee replacement right Hx of eye surgery left eye> detached retina> has prosthetic Past Anesthesia History No Hx of Anesthesia Complications and No Family Hx of Anesthesia Complications History of PONV History of PONV (single episode very remote, no issues since) and Hx of Motion Sickness Social History Smoking Status: Never smoker Do You Dip or Chew Tobacco: No Hx Alcohol Use: Yes Alcohol type: beer alcohol intake frequency: a few times a month Hx Substance Use: No substance use type: does not use Review of Systems Pt denies any recent chest pain, shortness of breath, palpitations, cough, fever or URI. Physical Exam Vital Signs BP: 114/77 P: 68bpm SPO2: 94% RA T: 98.7 F R: 16 Constitutional + obese ENMT Mouth: + dental restorations (many crowns) and + macroglossia; no chipped teeth and no loose teeth Thyromental Distance: > or= 3.5 Finger Breadths (3.5) Mallampati Class: I Neck + thick neck and + facial hair (very short mustache); neck extension not limited Respiratory normal respiratory effort Auscultation: lungs clear to auscultation bilaterally Cardiovascular Rate/Rhythm: regular rate and regular rhythm Heart Sounds: no murmur Extremities: no edema Testing Laboratory Results 12/21/19 13:47 12/21/19 13:47 PT 11.3 Seconds (9.0-12.0) 12/21/19 13:47 INR 1.1 (0.9-1.1) 12/21/19 13:47 APTT 27.3 Seconds (21.0-31.0) 12/21/19 13:47 Hemoglobin A1c 6.1 % (4.5-5.6) H 12/21/19 13:47 Urine Color Yellow 12/21/19 13:47 Urine Appearance Clear (Clear) 12/21/19 13:47 Urine pH 5.5 (4.5-7.5) 12/21/19 13:47 Ur Specific [place] 1.015 (1.000-1.030) 12/21/19 13:47 Urine Protein Negative (Negative) 12/21/19 13:47 Urine Glucose (UA) Negative (Negative) 12/21/19 13:47 Urine Ketones Negative (Negative) 12/21/19 13:47 Urine Nitrite Negative (Negative) 12/21/19 13:47 Ur Leukocyte Esterase Negative (Negative) 12/21/19 13:47 Blood Type A Positive 12/21/19 13:47 Antibody Screen NEGATIVE 12/21/19 13:47 Electrocardiogram Date: 12/21/19 Findings: + NSR @ (61bpm) Chest X-Ray Date: 12/21/19 Findings: + NAD
--- NOTE | 2019-12-21 14:32 | XRay Report ---
TWO VIEW CHEST CLINICAL HISTORY: Preoperative examination. FINDINGS: PA and lateral chest radiographs are compared to study dated 06/12/2017. The cardiomediasti nal silhouette is unremarkable. The lungs and pleural spaces are clear. There is no pneumothorax. Th e bony thorax appears intact. Cholecystectomy clips are noted in the right upper quadrant. IMPRESSION: No active disease in the chest. ACT 112: Negative or not required by law. Electronically signed by: Pascual Gardiner M.D. 12/21/2019 2:30 PM
[2019-12-21 14:33] LABS: Basophils # (auto) 0.02 K/uL (0-0.2); Basophils % (auto) 0.6 %; Eosinophils # (auto) 0.17 K/uL (0-0.5); Hematocrit (blood only) 41.3 % (42-52); Hemoglobin 13.2 g/dL (14.0-18.0); Immature Granulocytes # (auto) 0.01 K/uL (0.00-0.02); Immature Granulocytes % (auto) 0.3 %; Lymphocytes # (auto) 1.09 K/uL (1.2-3.4); Lymphocytes % (auto) 32.1 %; Mean Corpuscular Hemoglobin 29.6 pg (25-34); Mean Corpuscular Volume 92.6 fL (80-100); Mean Platelet Volume 9.8 fL (7.4-10.4); Monocytes # (auto) 0.24 K/uL (0.11-0.59); Monocytes % (auto) 7.1 %; Neutrophils # (auto) 1.87 K/uL (1.4-6.5); Neutrophils % (auto) 54.9 %; Platelet Count 175 K/uL (130-400); RDW Coefficient of Variation 14.7 % (11.5-14.5); RDW Standard Deviation 49.7 fL (36.4-46.3); Red Blood Count 4.46 M/uL (4.7-6.1)
--- NOTE | 2019-12-21 14:39 | Electrocardiogram Report ---
Test Reason : Blood Pressure : / mmHG Vent. Rate : 061 BPM Atrial Rate : 061 BPM P-R Int : 194 ms QRS Dur : 094 ms QT Int : 426 ms P-R-T Axes : 058 044 064 degrees QTc Int : 428 ms Normal sinus rhythm Normal ECG When compared with ECG of 12-JUN-2017 18:00, Criteria for Inferior infarct are no longer Present Confirmed by Amado Chairez ([id number]) on 12/21/2019 2:38:38 PM Referred By: Rip Huber Confirmed By:Amado Chairez
[2019-12-21 14:45] LABS: Appearance Urine Clear (Clear); Bilirubin Urine Negative (Negative); Blood Urine Negative (Negative); Color Urine Yellow; Glucose Urine UA Negative (Negative); INR 1.1 (0.9-1.1); Ketones Urine Negative (Negative); Leukocyte Esterase Urine Negative (Negative); Nitrite Urine Negative (Negative); Partial Thromboplastin Time 27.3 Seconds (21.0-31.0); Protein Urine Negative (Negative); Prothrombin Time 11.3 Seconds (9.0-12.0); Specific Gravity Urine 1.015 (1.000-1.030); Urobilinogen Urine Negative (Negative); pH Urine 5.5 (4.5-7.5)
[2019-12-21 17:48] LABS: Albumin Level 3.8 gm/dl (3.4-5.0); Calcium 8.9 mg/dl (8.5-10.1); Creatinine Clr Calc Pharmacy 72.2 ml/min; Est GFR (Non-African American) 57.8; Potassium 4.1 mmol/L (3.5-5.1)
[2019-12-22 05:47] LABS: Estimated Average Glucose 128 mg/dl; Hemoglobin A1C 6.1 % (4.5-5.6)
--- NOTE | 2020-01-11 08:29 | History & Physical Report ---
Date of Service January 11, 2020 date of surgery: 01-27-20 Assessment & Plan (1) Arthritis of knee, left: Risks and benefits of procedure discussed in detail today, patient would like to proceed with a Left total knee replacement at [facility] as scheduled. will obtain medical clearance prior to surgery as well as obtain PATs at [facility]. Will place on ASA 81mg po bid x 1 month post op, f/u 2 weeks post op for routine post-operative care and x-ray, sooner if having any problems. will make arrangements for HHPT at the time of discharge. At this point in time, has failed conservative measures and would like to proceed with surgical intervention. The risks and benefits have been discussed including, but not limited to, risk of infection, nerve injury, stiffness, loss of motion, failure to improve, etc. Reasonable outcomes and options of treatment were discussed. An explanation of appropriate alternatives to the procedure that may be advantageous were discussed and their risks and benefits, as well as the risks and benefits of not proceeding with treatment. I offered to answer any additional inquiries concerning the treatment involved. All the patient's questions were answered. The patient is agreeable, understanding of the treatment plan and alternatives, and wishes to proceed with the treatment plan. History of Present Illness Chief Complaint: left knee pain Primary Care Provider: Romeo Carballo Kalen is a 69 year old male who complains of left knee pain, presents for pre-op evaluation prior to a left total knee replacement by dr Huber at [facility]. He complains of pain, decreased range of motion, instability and stiffness in his left knee. He states that the symptoms have been chronic and non-traumatic. He states that the symptoms occur constantly with intermittent worsening. Currently the patient states that the symptoms are moderate-severe. The pain is described as aching, sharp and throbbing. The symptoms occur continuously. The symptoms are aggravated by ascending stairs, daily activities, first steps while awake walking. Prior NSAIDs include IBU and Mobic. He has been treated with previous cortisone and visco injections in the past without much relief. Allergies Allergy/AdvReac Type Severity Reaction Status Date / Time doxycycline Allergy Unknown RASH Verified 12/18/19 08:40 Penicillins Allergy Unknown RASH Verified 12/18/19 08:40 tetracycline Allergy Unknown RASH Verified 12/18/19 08:40 adhesive Allergy Blister Verified 12/18/19 08:41 Home Medications Home Medications Medication Instructions Recorded Confirmed Type aspirin [Aspir-81] 81 mg PO QAM 12/18/19 12/18/19 History atenolol 50 mg PO QAM 12/18/19 12/18/19 History atorvastatin 20 mg PO PM 12/18/19 12/18/19 History cholecalciferol (vitamin D3) 50 mcg PO QAM 12/18/19 12/18/19 History [Vitamin D3] diphenhydramine-acetaminophen 1 tab PO HS PRN 12/18/19 12/18/19 History [Tylenol PM Extra Strength] famotidine 20 mg PO PM 12/18/19 12/18/19 History hydrochlorothiazide 25 mg PO QAM 12/18/19 12/18/19 History levothyroxine 125 mcg PO QAM 12/18/19 12/18/19 History lisinopril 20 mg PO BID 12/18/19 12/18/19 History Past Med/Surg History Medical History CAD (coronary artery disease) GERD (gastroesophageal reflux disease) Hyperlipidemia Hypertension Hypothyroidism Myocardial Infarction prior to cath in 2017 Osteoarthritis Sleep apnea cpap Surgical History H/O blepharoplasty bilat History of cardiac cath x2 2016 [facility]> 1 stent Jul 2019 > no stents > [facility] History of carpal tunnel release bilat History of cholecystectomy History of colonoscopy History of heart artery stent History of total knee replacement right Hx of eye surgery left eye> detached retina> has prosthetic Family History Mother Diabetes Stomach cancer Social History Preferred Language: Welsh Communication Ability: Effective 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 Beliefs That Will Affect Care: None Current Living Situation: Spouse Other Information That Helps Us Care for You: No Feels Safe at Home: Yes Safety Concerns: Feels Safe At This Time Smoking Status: Never smoker Do You Dip or Chew Tobacco: No ; Second Hand Exposure: Yes (as kid father smoked) ; Tobacco Cessation Education Requested by Patient: No Hx Alcohol Use: Yes Alcohol type: beer Hx Substance Use: No Review of Systems Review of Systems: All systems reviewed & are unremarkable except as noted in HPI & below Constitutional: no fever, no chills and no sweats Respiratory: no cough and no dyspnea Cardiovascular: no chest pain, no dyspnea and no orthopnea Gastrointestinal: no abdominal pain, no nausea and no vomiting Musculoskeletal: as per Subjective / HPI Physical Exam Physical Exam: HT: 5ft 10in Wt: 121kg BP: 140/80 Constitutional: WD/WN, vitals as above no acute distress Respiratory: normal respiratory effort, lungs clear to auscultation no respiratory distress, no labored breathing and does not use accessory muscles Cardiovascular: RRR, no murmur, no edema Gastrointestinal (Abdomen): normal bowel sounds, soft, nontender, no hepatosplenomegaly Musculoskeletal: Knee: + knee abnormal to inspection (Left knee- ), + deformity (varus), + effusion (+1 effusion), + limited ROM of knee (ROM 0/3/110), + knee ROM with crepitation, + joint line tenderness (medial joint line) and + Klarissa's sign positive; no skin erythema, no ecchymosis, no valgus laxity, no varus laxity, anterior drawer test negative, Nohelia's sign negative and pivot shift test negative Results & Data Results & Data ([facility]) Laboratory Results Laboratory Results WBC 3.40 K/uL (4.8-10.8) L 12/21/19 13:47 RBC 4.46 M/uL (4.7-6.1) L 12/21/19 13:47 Hgb 13.2 g/dL (14.0-18.0) L 12/21/19 13:47 Hct 41.3 % (42-52) L 12/21/19 13:47 MCV 92.6 fL (80-100) 12/21/19 13:47 MCH 29.6 pg (25-34) 12/21/19 13:47 MCHC 32.0 g/dL (32-36) 12/21/19 13:47 RDW Std Deviation 49.7 fL (36.4-46.3) H 12/21/19 13:47 RDW Coeff of Yamileth 14.7 % (11.5-14.5) H 12/21/19 13:47 Plt Count 175 K/uL (130-400) 12/21/19 13:47 MPV 9.8 fL (7.4-10.4) 12/21/19 13:47 Immature Gran % (Auto) 0.3 % 12/21/19 13:47 Neut % (Auto) 54.9 % 12/21/19 13:47 Lymph % (Auto) 32.1 % 12/21/19 13:47 [place] % (Auto) 7.1 % 12/21/19 13:47 Eos % (Auto) 5.0 % 12/21/19 13:47 Baso % (Auto) 0.6 % 12/21/19 13:47 Neut # (Auto) 1.87 K/uL (1.4-6.5) 12/21/19 13:47 Lymph # (Auto) 1.09 K/uL (1.2-3.4) L 12/21/19 13:47 [place] # (Auto) 0.24 K/uL (0.11-0.59) 12/21/19 13:47 Eos # (Auto) 0.17 K/uL (0-0.5) 12/21/19 13:47 Baso # (Auto) 0.02 K/uL (0-0.2) 12/21/19 13:47 Immature Gran # (Auto) 0.01 K/uL (0.00-0.02) 12/21/19 13:47 PT 11.3 Seconds (9.0-12.0) 12/21/19 13:47 INR 1.1 (0.9-1.1) 12/21/19 13:47 APTT 27.3 Seconds (21.0-31.0) 12/21/19 13:47 PTT Ratio 1.0 12/21/19 13:47 Sodium 140 mmol/L (136-145) 12/21/19 13:47 Potassium 4.1 mmol/L (3.5-5.1) 12/21/19 13:47 Chloride 106 mmol/L (98-107) 12/21/19 13:47 Carbon Dioxide 28 mmol/L (21-32) 12/21/19 13:47 Anion Gap 6.0 (3-11) 12/21/19 13:47 BUN 20 mg/dl (7-18) H 12/21/19 13:47 Creatinine 1.26 mg/dl (0.6-1.4) 12/21/19 13:47 Est Cr Clr Drug Dosing 72.2 ml/min 12/21/19 13:47 Est GFR ( Amer) 67.0 12/21/19 13:47 Est GFR (Non-Af Amer) 57.8 12/21/19 13:47 BUN/Creatinine Ratio 16.0 (10-20) 12/21/19 13:47 Glucose 94 mg/dl (70-99) 12/21/19 13:47 Estimat Average Glucose 128 mg/dl 12/21/19 13:47 Hemoglobin A1c 6.1 % (4.5-5.6) H 12/21/19 13:47 Calcium 8.9 mg/dl (8.5-10.1) 12/21/19 13:47 Albumin 3.8 gm/dl (3.4-5.0) 12/21/19 13:47 Urine Color Yellow 12/21/19 13:47 Urine Appearance Clear (Clear) 12/21/19 13:47 Urine pH 5.5 (4.5-7.5) 12/21/19 13:47 Ur Specific [place] 1.015 (1.000-1.030) 12/21/19 13:47 Urine Protein Negative (Negative) 12/21/19 13:47 Urine Glucose (UA) Negative (Negative) 12/21/19 13:47 Urine Ketones Negative (Negative) 12/21/19 13:47 Urine Blood Negative (Negative) 12/21/19 13:47 Urine Nitrite Negative (Negative) 12/21/19 13:47 Urine Bilirubin Negative (Negative) 12/21/19 13:47 Urine Urobilinogen Negative (Negative) 12/21/19 13:47 Ur Leukocyte Esterase Negative (Negative) 12/21/19 13:47 Blood Type A Positive 12/21/19 13:47 Antibody Screen NEGATIVE 12/21/19 13:47 Diagnostic Findings Left Knee X-ray: left knee series confirm advanced degenerative changes to the left knee, greatest medial compartments and patellofemoral joint, showing joint space narrowing, osteophyte formation and subchondral sclerosis. no acute bony pathology noted.
[~2020-01-27 08:04] MED LIST changes: +ACETAMINOPHEN 500 MG TAB PO SCH; -ATEN-175 PO; +BUPIVACAINE 0.5 % 5 MG/1 ML PF 10ML VIAL ONE; +CLINDAMYCIN 600 MG/54 ML BAG IV SCH; +CeleBREX 200 MG CAP PO SCH; -ENOX40IN SQ; +EPINEPHrine INJ 1 MG/ML AMP ONE; +FAMOTIDINE 20 MG TAB PO SCH; +GABAPENTIN 300 MG CAP PO SCH; -GLUCOSAMINE PO; -HCTZ PO; -LEVO125T7 PO; -LISI10TA PO; +LR 500ML BOLUS, THEN 15ML/HR IV SCH; +METOCLOPRAMIDE HCL 10 MG TABLET PO SCH; -OXYC-292 PO; -RANI150T3 PO; +ROPIVACAINE 0.5% 5 MG/ML 30 ML VIAL ONE; +ROPIVACAINE 0.5% HCL/PF 150 MG, BUPIVACAINE 0.5% MPF 30 ML, EPINEPHrine 30MG/30ML (OR U... INFIL SCH; -SILD100T PO; +TRANEXAMIC ACID 1,000 MG **IV Intra-op IV SCH; +dexAMETHasone 4 MG TAB PO SCH
[2020-01-27] MEDS ORDERED: MIDAZOLAM HCL 1 MG/ML 2ML VIAL ONE (08:11)
--- NOTE | 2020-01-27 08:43 | History & Physical Bridge Note ---
Date of Service January 27, 2020 History & Physical Bridge Note I have examined the patient, reviewed the History & Physical and in the interval since the performance of the History & Physical I have noted the following changes of clinical significance: no changes noted
[2020-01-27] MEDS ORDERED: ORTHO JOINT ANESTHETIC ONE (09:09)
[2020-01-27] MEDS ORDERED: BACITRACIN INJ 50,000 UNIT VIAL ONE (09:09)
[2020-01-27] MEDS: TRANEXAMIC ACID 1,000 MG **IV Pre-op IV SCH ×2 (09:13→09:42)
[2020-01-27] MEDS ORDERED: ATROPINE SULFATE 0.1 MG/ML 10ML SYR IV PRN (10:01)
[2020-01-27] MEDS ORDERED: HYDROmorphone INJ 1 MG/ML SYRINGE IV PRN (10:01)
[2020-01-27] MEDS ORDERED: ONDANSETRON INJ 2 MG/ML 2 ML VIAL IV PRN ×2 (10:01→14:28)
[2020-01-27] MEDS ORDERED: fentaNYL citrate 100 MCG/2 ML VIAL IV PRN (10:01)
[2020-01-27] MEDS ORDERED: ePHEDrine sulfate 50 MG/ML AMP IV PRN (10:01)
[2020-01-27] MEDS ORDERED: fentaNYL citrate 100 MCG/2 ML VIAL ONE (10:10)
[2020-01-27] MEDS ORDERED: PROPOFOL IV EMULSION 10 MG/ML 20 ML VIAL IV ONE (10:10)
--- NOTE | 2020-01-27 11:07 | Operative Report ---
Post Operative Report Pre & Post Diagnosis Operation Date: 01/27/20 10:00 Pre-Op Diagnosis: LEFT KNEE OSTEOARTHRITIS Post-Op Diagnosis: LEFT KNEE OSTEOARTHRITIS I identified the patient and participated in the time-out.: Yes Procedure Operation Date: 01/27/20 10:00 Actual Procedures p Left Total Knee Arthroplasty(Left utilizing Portillo & NephAibo journey 2 patient matched total knee arthroplasty size 7 femur 6 tibia 11 polyethylene 32 oval patella) - Rip Huber DO Surgeon Rip Huber DO Rn Surgical P[facility] Pardeep DEMARCO Estimated Blood Loss 5 Findings Consistent with Post-Op Diagnosis Patient presents with severe end-stage DJD left knee with varus alignment subchondral sclerosis marginal osteophytes moderate to large effusion nonresponsive conservative management patient presents for total knee a rthroplasty Specimens Bone and cartilage Drains Medium bore Hemovac Anesthesia Type MAC Spinal Regional Complications none Disposition Accompanied Patient To Recovery: No Disposition: Recovery Room Indications Patient presents a 69-year-old male with severe end-stage tricompartmental degenerative joint disease for left total knee arthroplasties failed attempted conservative management including physical therapy anti-inflammatories relative rest activity modification corticosteroid injection Visco supplementation presents for left total knee arthroplasty Description of Procedure After proper prepping and draping of the left lower extremity anterior midline incision was made over the region of the extensor extensor mechanism after meticulous hemostasis was obtained and maintained in subcutaneous tissues a medial parapatellar incision was made The patella was subluxed lateralward the medial lateral gutter were cleaned from any hypertrophic synovitis and scar tissue of the distal femoral block was placed and the distal femoral osteotomy cut was made subsequently the chamfers anterior and posterior osteotomy cuts were made utilizing the 4-in-1 block the tibia was subsequently subluxed anteriorward medial and ateral meniscal remnants were excised in their entirety remnants of the anterior and posterior cruciate ligaments were excised in their entirety excellent exposure of the proximal tibia was obtained the tibial osteotomy guide was placed on the proximal tibial osteotomy cut was made once again the knee was irrigated with copious amounts of sterile saline solution the patella was subsequently everted lateralward thickened scar tissue around the patella was removed the patella was subsequently cut utilizing a freehand technique and was drilled prepared for final preparation and placement of patella socially flexion-extension gaps were checked and the equal and symmetric trials were placed to the appropriate femoral and tibial trials with poly-spacer being placed for equal flexion and extension gaps and full range of motion including extension to 0 and flexion to 140 the trial components after having been taken to recovery range of motion was subsequently removed meticulous hemostasis was obtained and maintained subsequently a knee block injection of joint cocktail including ropivacaine 0.5% 150 mg. Bupivacaine 0.5% epinephrine 1-200,030 mL's toradol 30 mg dexamethasone 4 mg ketamine 10 mg clonidine 100 micrograms normal saline solution 30 mg was infiltrated into the soft tissues of the posterior knee medial lateral gutters and periosteal synovium special attention was paid to protect neurovascular structures at all times subsequently trial components having been removed the knee was irrigated with sterile saline solution. debris was removed the proximal tibia was subsequently prepared and was made ready for the placement of the tibial component tibial component was also cemented and tamped into position the femoral component was subsequently placed and cemented in the position the patellar component was subsequently cemented in position because hemostasis once again obtained and maintained wound having been thoroughly irrigated with debridement and debridement lavage was performed as well as a medial parapatellar incision closed with #1 Vicryl in interrupted fashion subcutaneous was closed with #2 Vicryl skin was closed with skin clips. PA-C was necessary for prepping and drapping as well as wound closure of deep fascia Sub cutaneous tissue and skin and was necessary for the case. A sterile compressive dressing was placed patient was taken to recovery in stable condition of report dictated by Mayo I attest to the content of the Intraoperative Record and any orders documented therein. Any exceptions are noted below. I attest to the content of the Intraoperative Record and any orders documented therein. Any exceptions are noted below.
--- NOTE | 2020-01-27 12:17 | XRay Report ---
XR knee LT 1 or 2V routine CLINICAL HISTORY: Surgical Post Op COMPARISON: None. DISCUSSION: There are postsurgical changes of a total left knee arthroplasty and patellar resurfacing . The femoral and tibial components appear well seated. There are overlying surgical drains. There is air present within the soft tissues consistent with recent surgery IMPRESSION: Postsurgical changes of a total left knee arthroplasty. ACT 112: Negative or not required by law. Electronically signed by: Carlos Morel M.D. 01/27/2020 12:16 PM
[2020-01-27] MEDS ORDERED: MAGNESIUM HYDROXIDE SUSP 30 ML UDC PO PRN (14:28)
[2020-01-27] MEDS ORDERED: bisacodyL 10 MG SUPP PR PRN (14:28)
[2020-01-27] MEDS ORDERED: NALOXONE HCL 0.4 MG/1 ML VIAL/CARP IV PRN (14:28)
[2020-01-27] MEDS ORDERED: ALUMINUM/MAGNESIUM SUSP 30 ML UDC PO PRN (14:28)
[2020-01-27] MEDS ORDERED: TAMSULOSIN HCL 0.4 MG CAP PO PRN (14:28)
[2020-01-27] MEDS ORDERED: METOCLOPRAMIDE HCL INJ 5 MG/ML 2 ML VIAL IV PRN (14:28)
[2020-01-27] MEDS: SODIUM CHLORIDE 0.9% 1000ML 1,000 ML IV SCH (14:45)
--- NOTE | 2020-01-27 15:03 | Anesthesiology Progress Note ---
Date of Service January 27, 2020 Anesthesia Post Procedure Vital Signs Vital Signs: Temp Pulse Pulse Resp BP BP Pulse Ox 01/27/20 14:48 36.5 C 57 L 16 128/84 97 01/27/20 14:29 36.2 C L 62 19 123/77 96 01/27/20 14:15 56 L 14 116/82 97 01/27/20 14:00 54 L 13 122/73 97 01/27/20 13:45 56 L 14 112/70 98 01/27/20 13:30 53 L 15 116/73 97 01/27/20 13:15 49 L 14 116/66 99 01/27/20 13:00 53 L 16 105/67 97 01/27/20 12:45 51 L 13 105/68 99 01/27/20 12:30 56 L 13 107/62 99 01/27/20 12:15 36.3 C L 57 L 17 110/65 98 01/27/20 12:05 52 L 17 106/59 L 97 01/27/20 11:55 59 L 14 109/59 L 97 01/27/20 11:48 36.0 C L 57 L 19 104/57 L 99 01/27/20 09:34 36.8 C 59 L 18 114/92 97 01/27/20 08:53 36.9 C 56 L 20 152/85 H 97 Transfer of Care Handoff Completed per policy Notes Mental Status: alert / awake / arousable and participated in evaluation Patient Amnestic to Procedure: Yes Nausea / Vomiting: adequately controlled Pain: adequately controlled Airway Patency, RR, SpO2: stable & adequate BP & HR: stable & adequate Hydration State: stable & adequate Neuraxial Anesthesia: was administered and sensory block is resolving Anesthetic Complications: no major complications apparent and Pt Satisfied with anesthetic care
[2020-01-27] MEDS: ACETAMINOPHEN 500 MG TAB PO SCH ×2 (15:36→22:10)
[2020-01-27] MEDS: KETOROLAC TROMETHAMINE 15 MG/ML VIAL IV SCH ×2 (15:36→19:55)
--- NOTE | 2020-01-27 15:53 | Hospitalist Consultation ---
Date of Consultation January 27, 2020 Assessment & Plan (1) S/P total knee arthroplasty: Status post left TKA on 01/26 Postoperative care as per orthopedic surgery -Pain control, bowel regimen as per orthopedic surgery -PT/OT evaluations will be needed -DVT prophylaxis with aspirin 81 mg p.o. twice daily, SCDs, LENCHO hose -Follow postoperative CBC in the morning (2) CAD (coronary artery disease): With a history of drug-eluting stent to the mid LAD with most recent cardiac catheterization in 07/2019 with patent stent and mild LAD No acute issues, preoperative ECG with normal sinus rhythm, no ischemia Seen by his tie tape machine operator prior to surgery and was deemed intermediate perioperative risk for cardiovascular issues -Continue aspirin, atenolol, atorvastatin (3) Sleep apnea: Patient has a CPAP at home-Will order for his home CPAP use If that cannot be brought in, we can provide him a CPAP from here (4) Hypothyroidism: Continue home levothyroxine 125 mcg p.o. once daily (5) Hypertension: Blood pressures here are well controlled -Continue home atenolol, lisinopril -Follow BMP in the morning (6) Hyperlipidemia: Continue home atorvastatin (7) Anemia: Preoperative hemoglobin mildly low at 13, normocytic Follow postoperative CBC and follow-up with PCP regarding mild anemia in the future for further work-up (8) Prediabetes: Hemoglobin A1c was 6.1% on preoperative lab work-this is considered in the prediabetic range -He is obese and now that his knee has been replaced, hopefully he can work on exercise and weight loss -Follow-up with PCP after discharge No need for insulin or Accu-Cheks here unless he becomes hyperglycemic on morning labs (9) CKD (chronic kidney disease) stage 3, GFR 30-59 ml/min: Creatinine 1.2 on preoperative laboratory values with a GFR 57, he has CKD stage II-III -Avoid nephrotoxins -renally dose meds when appropriate -follow BMP -Continue lisinopril (10) Allergic rhinitis: Continue Flonase (11) GERD (gastroesophageal reflux disease): Continue Pepcid 20 mg p.o. every afternoon (12) DVT prophylaxis: SCDs, thigh-high's teds, aspirin 81 mg p.o. twice daily Disposition-continued stay medical/surgical service, hospital service will follow along History of Present Illness Reason for Consultation: Postop medical management Requesting Physician: Dr. Huber Attending Physician: Rip Huber, DO History of Present Illness This patient is a 69-year-old male with a history of CAD status post stent to the mid LAD, MIGNON on CPAP, HTN, hyperlipidemia, allergic rhinitis, GERD, hypothyroidism, and obesity, who is in the hospital status post right total knee arthroplasty with Dr. Huber on 01/26. The hospital service was consulted for medical management. He reports feeling very well, just some throat irritation he thinks from the tube for anesthesia. Denies headache or lightheadedness, no CP or SOB, no N/V, no abd pain. No pain in the knee. Allergies Allergy/AdvReac Type Severity Reaction Status Date / Time adhesive Allergy Intermediate Blister Verified 01/27/20 08:47 doxycycline Allergy Intermediate RASH Verified 01/27/20 08:47 Latex, Natural Rubber Allergy Intermediate Blister Verified 01/27/20 08:45 Penicillins Allergy Intermediate RASH Verified 01/27/20 08:47 tetracycline Allergy Intermediate RASH Verified 01/27/20 08:47 Home Medications Home Medications Medication Instructions Recorded Confirmed Type aspirin [Aspir-81] 81 mg PO QAM 12/18/19 01/27/20 History atenolol 25 mg PO QAM 12/18/19 01/27/20 History atorvastatin 20 mg PO PM 12/18/19 01/27/20 History cholecalciferol (vitamin D3) 50 mcg PO QAM 12/18/19 01/27/20 History [Vitamin D3] diphenhydramine-acetaminophen 1 tab PO HS PRN 12/18/19 01/27/20 History [Tylenol PM Extra Strength] famotidine 20 mg PO PM 12/18/19 01/27/20 History hydrochlorothiazide 25 mg PO QAM 12/18/19 01/27/20 History levothyroxine 125 mcg PO QAM 12/18/19 01/27/20 History lisinopril 20 mg PO BID 12/18/19 01/27/20 History Patient History Medical History (Updated 01/27/20 @ 15:56 by Ashtyn Blackwell MD) Allergic rhinitis Anemia CAD (coronary artery disease) CKD (chronic kidney disease) stage 3, GFR 30-59 ml/min GERD (gastroesophageal reflux disease) Hyperlipidemia Hypertension Hypothyroidism Myocardial Infarction prior to cath in 2017 Obesity Osteoarthritis Prediabetes Sleep apnea cpap Surgical History (Updated 01/27/20 @ 15:56 by Ashtyn Blackwell MD) H/O blepharoplasty bilat History of cardiac cath x2 2017 [facility]> 1 stent Jul 2019 > no stents > [facility] History of carpal tunnel release bilat History of cholecystectomy History of colonoscopy History of heart artery stent History of total knee replacement right Hx of eye surgery left eye> detached retina> has prosthetic S/P total knee arthroplasty Family History Mother Diabetes Stomach cancer Social History Smoking Status: Never smoker Second Hand Exposure: Yes (as kid father smoked); Do You Dip or Chew Tobacco: No; Tobacco Cessation Education Requested by Patient: No Hx Alcohol Use: Yes Alcohol type: beer Hx Substance Use: No Preferred Language: Slovenian Communication Ability: Effective Stock Pitcher Required: No Beliefs That Will Affect Care: None Current Living Situation: Spouse Other Information That Helps Us Care for You: No Feels Safe at Home: Yes Safety Concerns: Feels Safe At This Time Review of Systems Review of Systems: All systems reviewed & are unremarkable except as noted in HPI & below Physical Exam Constitutional: WD/WN, vitals as above Eyes: + anicteric sclerae Left eye with prosthesis ENMT: external ear and nose normal, oropharynx normal Neck: trachea midline, no thyromegaly Respiratory: normal respiratory effort, lungs clear to auscultation Cardiovascular: RRR, no murmur, no edema Chest (Breasts): Chest: normal inspection of chest Gastrointestinal (Abdomen): normal bowel sounds, soft, nontender, no hepatosplenomegaly Musculoskeletal: Extremities: + extremities abnormal to inspection (left knee with dressing in place), no cyanosis and no clubbing Skin: no rashes, warm and dry Neurologic: moves all extremities and awake; no focal motor deficits Psychiatric: A+Ox3, euthymic affect Lymphatic: no lymphedema Results & Data Results & Data ([facility]) Vital Signs (Past 12 Hours) Vital Signs Temp Pulse Pulse Resp BP BP Pulse Ox 01/27/20 15:00 36.4 C L 58 L 20 133/83 97 01/27/20 14:48 36.5 C 57 L 16 128/84 97 01/27/20 14:29 36.2 C L 62 19 123/77 96 01/27/20 14:15 56 L 14 116/82 97 01/27/20 14:00 54 L 13 122/73 97 01/27/20 13:45 56 L 14 112/70 98 01/27/20 13:30 53 L 15 116/73 97 01/27/20 13:15 49 L 14 116/66 99 01/27/20 13:00 53 L 16 105/67 97 01/27/20 12:45 51 L 13 105/68 99 01/27/20 12:30 56 L 13 107/62 99 01/27/20 12:15 36.3 C L 57 L 17 110/65 98 01/27/20 12:05 52 L 17 106/59 L 97 01/27/20 11:55 59 L 14 109/59 L 97 01/27/20 11:48 36.0 C L 57 L 19 104/57 L 99 01/27/20 09:34 36.8 C 59 L 18 114/92 97 01/27/20 08:53 36.9 C 56 L 20 152/85 H 97 Laboratory Results Preoperative laboratory values were reviewed and abnormalities include mildly elevated creatinine of 1.2 with a GFR of 57 Also with hemoglobin A1c in the prediabetes range at 6.1% Hemoglobin mildly low at 13.1 is normocytic Diagnostic Findings Chest x-ray report reviewed preoperatively and is without acute disease ECG Additional Comments: ECG preoperatively with normal sinus rhythm, normal rate, no ischemic changes PG Care Time/CCT Total # of Minutes Spent Total Time Spent with Patient: Total time spent is greater than 50% in co ordination of care (as documented) at patient's floor/unit and/or counseling patient: Coding Level of Care Code 05781 Inpt Consult Level 3 Diagnoses S/P total knee arthroplasty Z96.659 CAD (coronary artery disease) I25.10 Sleep apnea G47.30 Hypothyroidism E03.9 Hypertension I10 Hyperlipidemia E78.5 Anemia D64.9 Prediabetes R73.03 CKD (chronic kidney disease) stage 3, GFR 30-59 ml/min N18.3 Allergic rhinitis J30.9 GERD (gastroesophageal reflux disease) K21.9 DVT prophylaxis Z29.9
[2020-01-27] MEDS: FERROUS GLUCONATE 324 MG TAB PO SCH (16:56)
[2020-01-27] MEDS: CLINDAMYCIN 600 MG in DEXTROSE 5% 50 ML IV SCH (17:05)
[2020-01-27] MEDS: ASPIRIN 81 MG ECTAB PO SCH (22:10)
[2020-01-27] MEDS: FAMOTIDINE 20 MG TAB PO SCH (22:11)
[2020-01-27] MEDS: DOCUSATE SODIUM 100 MG CAP PO SCH (22:11)
[2020-01-27] MEDS: lisinopriL 20 MG TAB PO SCH (22:11)
[2020-01-27] MEDS: SENNA 8.6 MG TAB PO SCH (22:12)
[2020-01-27] MEDS: ATORVASTATIN 20 MG TAB PO SCH (22:13)
[2020-01-28] MEDS: SODIUM CHLORIDE 0.9% 1000ML 1,000 ML IV SCH (00:50)
[2020-01-28] MEDS: CLINDAMYCIN 600 MG in DEXTROSE 5% 50 ML IV SCH (00:51)
[2020-01-28] MEDS: KETOROLAC TROMETHAMINE 15 MG/ML VIAL IV SCH ×2 (00:54→05:51)
[2020-01-28 05:48] LABS: Hematocrit (blood only) 34.9 % (42-52); Hemoglobin 11.3 g/dL (14.0-18.0); Mean Corpuscular Hemoglobin 29.2 pg (25-34); Mean Corpuscular Hgb Conc 32.4 g/dL (32-36); Mean Corpuscular Volume 90.2 fL (80-100); Mean Platelet Volume 10.5 fL (7.4-10.4); Platelet Count 179 K/uL (130-400); RDW Coefficient of Variation 14.7 % (11.5-14.5); RDW Standard Deviation 48.4 fL (36.4-46.3); Red Blood Count 3.87 M/uL (4.7-6.1); White Blood Count 8.55 K/uL (4.8-10.8)
[2020-01-28] MEDS: ACETAMINOPHEN 500 MG TAB PO SCH ×3 (05:52→20:51)
[2020-01-28] MEDS: LEVOTHYROXINE SODIUM 125 MCG TABLET PO SCH (05:55)
[2020-01-28 06:21] LABS: BUN Creatinine Ratio 23.6 (10-20); Calcium 7.6 mg/dl (8.5-10.1); Creatinine Clr Calc Pharmacy 68.4 ml/min; Est GFR (African American) 62.8; Est GFR (Non-African American) 54.2; Potassium 4.2 mmol/L (3.5-5.1)
--- NOTE | 2020-01-28 08:03 | Orthopedic Progress Note ---
Date of Service January 28, 2020 Assessment & Plan (1) Arthritis of knee, left: Postop day 1 status post left total knee arthroplasty PT/OT protocols. Weightbearing as tolerated. DVT prophylaxis-aspirin p.o. twice daily, SCDs, LENCHO hart. Pain management as written. Discharge planning-patient feels he will be going home health services upon discharge. Admission and Anticipated Discharge Date Admission Date: January 27, 2020 Subjective Postop day 1 Patient currently sitting up in bed. Awake and alert. She is having a little bit of discomfort this morning in the knee but is tolerable. Denies any shortness of breath, chest pain, lightheadedness. No other complaints at this time. Physical Exam Physical Exam: Dressings are clean, dry, and intact. Calves are soft nontender. Neurovascular intact. Toes are mobile. He has good dorsiflexion and plantarflexion in the left knee. Hemovac drainage was 200 cc from the previous shift. Results & Data ([facility]) Vital Signs (Past 12 Hours) Vital Signs Temp Pulse Pulse Resp BP Pulse Ox 01/28/20 06:52 36.8 C 60 18 121/69 93 01/28/20 04:14 36.4 C L 67 18 114/66 94 01/28/20 03:48 66 16 96 01/27/20 23:38 36.5 C 57 L 18 123/73 94 01/27/20 22:36 60 18 91 Laboratory Results Laboratory Results WBC 8.55 K/uL (4.8-10.8) 01/28/20 05:16 RBC 3.87 M/uL (4.7-6.1) L 01/28/20 05:16 Hgb 11.3 g/dL (14.0-18.0) L 01/28/20 05:16 Hct 34.9 % (42-52) L 01/28/20 05:16 MCV 90.2 fL (80-100) 01/28/20 05:16 MCH 29.2 pg (25-34) 01/28/20 05:16 MCHC 32.4 g/dL (32-36) 01/28/20 05:16 RDW Std Deviation 48.4 fL (36.4-46.3) H 01/28/20 05:16 RDW Coeff of Yamileth 14.7 % (11.5-14.5) H 01/28/20 05:16 Plt Count 179 K/uL (130-400) 01/28/20 05:16 MPV 10.5 fL (7.4-10.4) H 01/28/20 05:16 Immature Gran % (Auto) 0.3 % 12/21/19 13:47 Neut % (Auto) 54.9 % 12/21/19 13:47 Lymph % (Auto) 32.1 % 12/21/19 13:47 [place] % (Auto) 7.1 % 12/21/19 13:47 Eos % (Auto) 5.0 % 12/21/19 13:47 Baso % (Auto) 0.6 % 12/21/19 13:47 Neut # (Auto) 1.87 K/uL (1.4-6.5) 12/21/19 13:47 Lymph # (Auto) 1.09 K/uL (1.2-3.4) L 12/21/19 13:47 [place] # (Auto) 0.24 K/uL (0.11-0.59) 12/21/19 13:47 Eos # (Auto) 0.17 K/uL (0-0.5) 12/21/19 13:47 Baso # (Auto) 0.02 K/uL (0-0.2) 12/21/19 13:47 Immature Gran # (Auto) 0.01 K/uL (0.00-0.02) 12/21/19 13:47 PT 11.3 Seconds (9.0-12.0) 12/21/19 13:47 INR 1.1 (0.9-1.1) 12/21/19 13:47 APTT 27.3 Seconds (21.0-31.0) 12/21/19 13:47 PTT Ratio 1.0 12/21/19 13:47 Sodium 140 mmol/L (136-145) 01/28/20 05:16 Potassium 4.2 mmol/L (3.5-5.1) 01/28/20 05:16 Chloride 110 mmol/L (98-107) H 01/28/20 05:16 Carbon Dioxide 22 mmol/L (21-32) 01/28/20 05:16 Anion Gap 8.0 (3-11) 01/28/20 05:16 BUN 31 mg/dl (7-18) H 01/28/20 05:16 Creatinine 1.33 mg/dl (0.6-1.4) 01/28/20 05:16 Est Cr Clr Drug Dosing 68.4 ml/min 01/28/20 05:16 Est GFR ( Amer) 62.8 01/28/20 05:16 Est GFR (Non-Af Amer) 54.2 01/28/20 05:16 BUN/Creatinine Ratio 23.6 (10-20) H 01/28/20 05:16 Glucose 121 mg/dl (70-99) H 01/28/20 05:16 Estimat Average Glucose 128 mg/dl 12/21/19 13:47 Hemoglobin A1c 6.1 % (4.5-5.6) H 12/21/19 13:47 Calcium 7.6 mg/dl (8.5-10.1) L 01/28/20 05:16 Albumin 3.8 gm/dl (3.4-5.0) 12/21/19 13:47 Urine Color Yellow 12/21/19 13:47 Urine Appearance Clear (Clear) 12/21/19 13:47 Urine pH 5.5 (4.5-7.5) 12/21/19 13:47 Ur Specific [place] 1.015 (1.000-1.030) 12/21/19 13:47 Urine Protein Negative (Negative) 12/21/19 13:47 Urine Glucose (UA) Negative (Negative) 12/21/19 13:47 Urine Ketones Negative (Negative) 12/21/19 13:47 Urine Blood Negative (Negative) 12/21/19 13:47 Urine Nitrite Negative (Negative) 12/21/19 13:47 Urine Bilirubin Negative (Negative) 12/21/19 13:47 Urine Urobilinogen Negative (Negative) 12/21/19 13:47 Ur Leukocyte Esterase Negative (Negative) 12/21/19 13:47 Blood Type A Positive 12/21/19 13:47 Antibody Screen NEGATIVE 12/21/19 13:47
[2020-01-28] MEDS: CHOLECALCIFEROL 1,000 UNITS 25 MCG TAB PO SCH (09:08)
[2020-01-28] MEDS: hydroCHLOROthiazide 25 MG TAB PO SCH (09:08)
[2020-01-28] MEDS: lisinopriL 20 MG TAB PO SCH ×2 (09:08→20:49)
[2020-01-28] MEDS: ASPIRIN 81 MG ECTAB PO SCH ×2 (09:09→20:49)
[2020-01-28] MEDS: ATENOLOL 25 MG TABLET PO SCH (09:09)
[2020-01-28] MEDS: FERROUS GLUCONATE 324 MG TAB PO SCH ×2 (09:09→17:57)
[2020-01-28] MEDS: DOCUSATE SODIUM 100 MG CAP PO SCH ×2 (09:10→20:48)
[2020-01-28] MEDS: MULTIVITAMIN TAB PO SCH (09:10)
--- NOTE | 2020-01-28 12:33 | Hospitalist Progress Note ---
Date of Service January 28, 2020 Assessment & Plan (1) S/P total knee arthroplasty: * POD #1 Status post left TKA on 01/[address] Huber. Pre-op h/h 13/41 * H/h 11.3/34.9 post-operatively, stable -- likely combination of acute blood loss from surgery as well as dilutional from IVF. Hemovac output 350mL. * Postoperative care as per orthopedic surgery * Pain control, bowel regimen as per orthopedic surgery * PT/OT evaluations -- plan for outpatient PT at discharge * DVT prophylaxis with aspirin 81 mg p.o. twice daily, SCDs, LENCHO hose (2) CAD (coronary artery disease): * With a history of drug-eluting stent to the mid LAD with most recent cardiac catheterization in 07/2019 with patent stent and mild LAD * No acute issues, preoperative ECG with normal sinus rhythm, no ischemia * Seen by his president and chief executive officer prior to surgery and was deemed intermediate perio perative risk for cardiovascular issues * Continue aspirin, atenolol, atorvastatin (3) Sleep apnea: * CPAP (4) Hypothyroidism: * Continue home levothyroxine 125 mcg p.o. once daily (5) Hypertension: * Blood pressures here are well controlled, 128/72 * Continue home atenolol, lisinopril (6) Hyperlipidemia: * Continue home atorvastatin (7) Anemia: * Preoperative hemoglobin mildly low at 13, normocytic * May benefit from further work-up outpatient with PCP regarding hx anemia (8) Prediabetes: * Hemoglobin A1c was 6.1% on preoperative lab work-this is considered in the prediabetic range * -He is obese and now that his knee has been replaced, hopefully he can work on exercise and weight loss * -Follow-up with PCP after discharge * No need for insulin or Accu-Cheks here unless he becomes hyperglycemic on morning labs. Glucose 121 on AM labs (9) CKD (chronic kidney disease) stage 3, GFR 30-59 ml/min: * Creatinine 1.26 on preoperative laboratory values with a GFR 57, he has CKD stage II-III * Avoid nephrotoxins * renally dose meds when appropriate * Cr 1.33 on AM labs (10) Allergic rhinitis: * Continue Flonase (11) GERD (gastroesophageal reflux disease): * Continue Pepcid 20 mg p.o. every afternoon (12) DVT prophylaxis: * SCDs, thigh-high's teds, aspirin 81 mg p.o. twice daily Disposition-patient hopeful for discharge this afternoon per primary service. Will defer to them regarding Hemovac removal inpatient vs with home health arranged by CM. Hospitalist service will sign off at this time. Please call with any questions/concerns. Admission and Anticipated Discharge Date Admission Date: January 27, 2020 Subjective Patient feeling well. Pain well controlled. Mild discomfort noted but stated he had been working with therapy and doing steps/etc. Eating/drinking without difficulty. Had BM. UO acceptable. Plans for home with home health if he still has hemovac this afternoon and outpatient PT but is hopeful for discharge this afternoon per primary service. Review of Systems Review of Systems: All systems reviewed & are unremarkable except as noted in HPI & below Physical Exam Constitutional: WD/WN, vitals as above no acute distress Eyes: PERRL, conjunctivae normal, anicteric sclerae Neck: trachea midline, no thyromegaly Respiratory: normal respiratory effort, lungs clear to auscultation Cardiovascular: RRR, no murmur, no edema Gastrointestinal (Abdomen): normal bowel sounds, soft, nontender, no hepatosplenomegaly Musculoskeletal: dressing to L knee c/d/i with ice packs on. Hemovac with 75cc bloody drainage present NVI calves non-tender to palpation bilaterally 2+ pulses Skin: warm, dry Neurologic: patellar DTR's 2+ bilat, sensation intact Psychiatric: A+Ox3, euthymic affect Lymphatic: no cervical or axillary lymphadenopathy Results & Data Results & Data ([facility]) Vital Signs (Past 12 Hours) Vital Signs Temp Pulse Pulse Resp BP BP Pulse Ox 01/28/20 09:05 62 128/72 01/28/20 06:52 36.8 C 60 18 121/69 93 01/28/20 04:14 36.4 C L 67 18 114/66 94 01/28/20 03:48 66 16 96 Laboratory Results 01/28/20 01/28/20 Range/Units 05:16 05:16 WBC 8.55 (4.8-10.8) K/uL RBC 3.87 L (4.7-6.1) M/uL Hgb 11.3 L (14.0-18.0) g/dL Hct 34.9 L (42-52) % MCV 90.2 (80-100) fL MCH 29.2 (25-34) pg MCHC 32.4 (32-36) g/dL RDW Std Deviation 48.4 H (36.4-46.3) fL RDW Coeff of Yamileth 14.7 H (11.5-14.5) % Plt Count 179 (130-400) K/uL MPV 10.5 H (7.4-10.4) fL Sodium 140 (136-145) mmol/L Potassium 4.2 (3.5-5.1) mmol/L Chloride 110 H (98-107) mmol/L Carbon Dioxide 22 (21-32) mmol/L Anion Gap 8.0 (3-11) BUN 31 H (7-18) mg/dl Creatinine 1.33 (0.6-1.4) mg/dl Est Cr Clr Drug Dosing 68.4 ml/min Est GFR ( Amer) 62.8 Est GFR (Non-Af Amer) 54.2 BUN/Creatinine Ratio 23.6 H (10-20) Glucose 121 H (70-99) mg/dl Calcium 7.6 L (8.5-10.1) mg/dl PG Care Time/CCT Total # of Minutes Spent Total Time Spent with Patient: Total time spent is greater than 50% in coordination of care (as documented) at patient's floor/unit and/or counseling patient: Coding Level of Care Code 11531 Subseq Hosp Care Lvl 3 Diagnoses S/P total knee arthroplasty Z96.659 CAD (coronary artery disease) I25.10 Sleep apnea G47.30 Hypothyroidism E03.9 Hypertension I10 Hyperlipidemia E78.5 Anemia D64.9 Prediabetes R73.03 CKD (chronic kidney disease) stage 3, GFR 30-59 ml/min N18.3 Allergic rhinitis J30.9 GERD (gastroesophageal reflux disease) K21.9 DVT prophylaxis Z29.9
[2020-01-28] MEDS: ATORVASTATIN 20 MG TAB PO SCH (20:48)
[2020-01-28] MEDS: SENNA 8.6 MG TAB PO SCH (20:49)
[2020-01-28] MEDS: FAMOTIDINE 20 MG TAB PO SCH (20:49)
[2020-01-28] MEDS: OXYCODONE HCL IR 5 MG TAB (IMMEDIATE RELEASE) PO PRN (20:54)
[2020-01-29] MEDS: ACETAMINOPHEN 500 MG TAB PO SCH (06:26)
[2020-01-29] MEDS: LEVOTHYROXINE SODIUM 125 MCG TABLET PO SCH (06:26)
[2020-01-29] MEDS: OXYCODONE HCL IR 5 MG TAB (IMMEDIATE RELEASE) PO PRN ×2 (06:27→11:07)
--- NOTE | 2020-01-29 07:13 | Orthopedic Progress Note ---
Date of Service January 29, 2020 Assessment & Plan (1) Arthritis of knee, left: Postop day 2 status post left total knee arthroplasty PT/OT protocols. Weightbearing as tolerated. DVT prophylaxis-aspirin p.o. twice daily, SCDs, LENCHO hart. Pain management as written. Discharge planning-patient feels he will be going home health services upon discharge. Progressing well, well plan for dc to home today. Admission and Anticipated Discharge Date Admission Date: January 27, 2020 Subjective POD 2 Sitting in his chair at bedside. No complaints this AM. Pain controlled. States he slept well. Physical Exam Physical Exam: Incision is C/D/I. Knee with some swelling. Calves soft,NT. NV intact. Toes mobile. Results & Data ([facility]) Vital Signs (Past 12 Hours) Vital Signs Temp Pulse Pulse Resp BP BP Pulse Ox 01/29/20 06:51 36.6 C 61 20 154/85 H 95 01/28/20 23:47 36.2 C L 59 L 18 106/58 L 95 01/28/20 23:00 55 L 12 96
[2020-01-29] MEDS: lisinopriL 20 MG TAB PO SCH (08:33)
[2020-01-29] MEDS: ASPIRIN 81 MG ECTAB PO SCH (08:33)
[2020-01-29] MEDS: ATENOLOL 25 MG TABLET PO SCH (08:34)
[2020-01-29] MEDS: DOCUSATE SODIUM 100 MG CAP PO SCH (08:34)
[2020-01-29] MEDS: hydroCHLOROthiazide 25 MG TAB PO SCH (08:35)
[2020-01-29] MEDS: MULTIVITAMIN TAB PO SCH (08:35)
[2020-01-29] MEDS: FERROUS GLUCONATE 324 MG TAB PO SCH (08:35)
[2020-01-29] MEDS: CHOLECALCIFEROL 1,000 UNITS 25 MCG TAB PO SCH (08:35)
--- NOTE | 2020-02-08 11:02 | Discharge Summary (DS) ---
CHIEF COMPLAINT: Left knee pain. HOSPITAL COURSE: The patient underwent left total knee arthroplasty without complication. He tolerated the procedure well and was discharged to recovery room in stable condition. His postoperative course was relatively uneventful. His postoperative pain was reasonably well controlled with combination of spinal anesthesia, nerve block, intraoperative joint injection, IV, and oral pain medications. He was started on aspirin for DVT prophylaxis. He also utilized LENCHO stockings and SCDs for additional prophylaxis. His H and H was stable and did not require transfusion. He tolerated postoperative physical therapy reasonably well. He was ambulating and bending his knee appropriately. He was discharged home on postoperative day 2. He will continue his aspirin for DVT prophylaxis. He will participate in outpatient physical therapy and follow up in our office in approximately 2 weeks for his initial postoperative evaluation.
== END 2020-01-29 12:41 | disposition home or self-care (01) | DRG 470 ==
LOC: ASU 08:04 → 3N 11:53